=== PATIENT | female | born 1990 | race Caucasian/White ===

== ENCOUNTER 2021-08-18 13:10 | Emergency (ER) | payer OTHER, SELFPAY ==
[2021-08-18 13:19] VITALS: BP 128/76; PULSE 65; RESP 18; TEMP 36.7; O2SAT 100; BMI 27.4
--- NOTE | 2021-08-18 13:59 | ED.GENADULT ---
HPI - General Adult General Time Seen by Provider: 13:59 Date Seen: 08/18/21 Chief complaint: Abdominal Pain Stated complaint: 7W Cramping Time Seen by Provider: 08/18/21 13:24 Source: patient and family History of Present Illness HPI narrative: This 31-year-old female comes in with concern of a couple cramps that occurred as she is at 7 weeks gestation. She states that she had a cramp last evening in her lower abdomen and a more mild 1 this morning. She does not have any vaginal bleeding or spotting. This is her 1st . She is otherwise in good health. Related Data Home Medications Medication Instructions Recorded Confirmed vit no.95-ferrous 1 tab PO DAILY 08/18/21 08/18/21 fumarate 28 mg-folic acid 800 mcg tablet ( Multivitamins) Allergies Allergy/AdvReac Type Severity Reaction Status Date / Time No Known Drug Allergies Allergy Verified 08/18/21 13:17 Review of Systems Status of ROS: Reports: 10 or more systems reviewed and unremarkable except as noted in History and below Narrative: Constitutional: No fevers, no weight gain or loss. Eyes: No discharge. No vision changes. HENT: No congestion, no sore throat, no ear pain. Cardiovascular: No chest pain, no palpitations. Respiratory: No shortness of breath, no wheezes, no cough. Gastrointestinal: No abdominal pain, no vomiting, no diarrhea. Genitourinary: No dysuria, no hematuria. Musculoskeletal: Normal range of motion. Skin: No rashes, no pruritis. Neurological: No dizziness, weakness, sensory change, speech change. Endo/Heme/Allergies: No bruising or bleeding. No polydipsia. Pysch: no suicidality, no anxiety, no insomnia. All other systems reviewed and are negative. Exam Narrative: Exam Narrative: Constitutional: Well-developed, well-nourished, no acute distress. HEENT: Normocephalic, atraumatic. Neck: Normal range of motion. Nontender. Supple. Heart: Regular. No murmurs. Normal rate. Intact distal pulses. Lungs: Clear to auscultation. No chest discomfort. No wheezes, rhonchi, or rales. Abdomen: Normal bowel sounds. Nontender. No rebound tenderness. Genitalia: Deferred. Back: No midline tenderness. Normal range of motion. Extremities: Normal range of motion. No injury. Skin: Intact. No rash. Warm. No erythema or pallor. Neurologic: No altered sensation. No weakness. Alert and oriented. Psychiatric: No suicidality. No anxiety or depression. No insomnia. Nursing notes and vitals signs are reviewed. Const: Vital Signs, click to edit/add: Vital Signs - 24 hr 08/18/21 13:19 Temperature 98.1 F Pulse Rate [Right Pulse Oximeter] 65 Respiratory Rate 18 Blood Pressure [Ri ght Upper Arm] 128/76 Pulse Oximetry 100 Course Vital Signs Vital signs: Initial Vital Signs Temperature 98.1 F 08/18/21 13:19 Temperature Source Temporal Artery Scan 08/18/21 13:19 Pulse Rate 65 08/18/21 13:19 Respiratory Rate 18 08/18/21 13:19 Blood Pressure 128/76 08/18/21 13:19 Blood Pressure Mean 93 08/18/21 13:19 Blood Pressure Position Sitting 08/18/21 13:19 Pulse Oximetry 100 08/18/21 13:19 Oxygen Delivery Method 08/18/21 13:19 Vital Signs Temperature 98.1 F 08/18/21 13:19 Pulse Rate 65 08/18/21 13:19 Respiratory Rate 18 08/18/21 13:19 Blood Pressure 128/76 08/18/21 13:19 Pulse Oximetry 100 08/18/21 13:19 Temperature 98.1 F 08/18/21 13:19 Pulse Rate 65 08/18/21 13:19 Respiratory Rate 18 08/18/21 13:19 Blood Pressure 128/76 08/18/21 13:19 Pulse Oximetry 100 08/18/21 13:19 Medical Decision Making MDM Narrative Medical decision making narrative: This patient is approximately 7 weeks and had 2 individual brief cramping episodes in her lower abdomen that is bird her to come in for evaluation. She does not have any vaginal bleeding. She feels normal otherwise and currently feels normal. She has her 1st ultrasound scheduled next week. I did use bedside ultrasound for for a transabdominal view of her uterus and did see intrauterine . Couple Ng this with no vaginal bleeding and persistent cramping the patient was reassured enough and will continue current plans. I did inform her regarding signs and symptoms that would indicate a need for return and re-evaluation. Discharge Plan Discharge Clinical Impression: First trimester Patient Disposition: Home, Self-Care Condition: Stable Instructions: at 7 to 10 Weeks (ED) Additional Instructions: 1st trimester . Continue current plans. Return if recurrent or worsening symptoms happen. Prescriptions: No Action PNV cmb#95-ferrous fumarate-FA [ Multivitamins] 28 mg iron- 800 mcg tablet 1 tab PO DAILY 0RF Stand Alone Forms: MyHealth Info Instructions Procedures Ultrasound Other exam #1: Anatomical areas examined: Uterus Indications: Cramps in Exam type: focused emergency ultrasound Description/findings: Intrauterine Impression: First trimester intrauterine
== END 2021-08-18 14:28 | disposition home or self-care (01) ==
PROVIDERS: Emergency Provider Emergency Medicine Emergency Medical Services
DX: R10.30 Lower abdominal pain, unspecified (principal); Z3A.01 Less than 8 weeks gestation of pregnancy
CPT/HCPCS: 99283; 99284

== ENCOUNTER 2021-08-29 09:06 | Outpatient (CLI) | payer OTHER, SELFPAY ==
[2021-08-29 13:30] LABS: Hepatitis B Surface Antigen* Negative (Negative)
[2021-08-29 13:39] LABS: HIV 1/2/P24 Combo Screen* Negative (Negative)
[2021-08-29 13:48] LABS: Hepatitis C Virus Antibody* Negative (Negative)
[2021-08-29 17:37] LABS: Chlamydia DNA Amplified* Not Detected (No Detected); GC DNA Amplified* Not Detected (No Detected)
[2021-08-30 20:11] LABS: Rapid Plasma Reagin (RPR) Non Reactive (Non Reactive)
== END 2021-08-29 09:07 | disposition home or self-care (01) ==
PROVIDERS: Visit Provider Advanced Practice Midwife
DX: Z34.91 Encounter for supervision of normal pregnancy, unspecified, first trimester (principal); Z3A.08 8 weeks gestation of pregnancy
CPT/HCPCS: 76817; 84443; 86592; 86703; 86762; 86787; 86803; 86850; 86900; 86901; 87086; 87340; 87491

== ENCOUNTER 2021-10-03 08:02 | Outpatient (CLI) | payer OTHER, SELFPAY ==
--- NOTE | 2021-10-03 08:15 | CRLHL7_ITS ---
For Patients: As a result of the Century Cures Act, medical imaging exams and procedure reports are released immediately into your electronic medical record. You may view this report before your referring provider. If you have questions, please contact your health care provider. CLINICAL HISTORY: First trimester screening. TECHNIQUE: Real time whitmore scale imaging of the fetus was performed using a transabdominal approach. FINDINGS: Sonographic imaging demonstrates a single living intrauterine gestation. The fetus demonstrates a regular cardiac rate measuring 150 beats per minute. The crown rump length measurement of 6.9 cm corresponds to a gestation of 13 weeks 1 day which is concordant with the earlier dating ultrasound. A nuchal translucency measurement of 1.7 mm was obtained for screening purposes. IMPRESSION: Nuchal translucency measurement obtained for first trimester screen. Dictated by Jose Luis Johnson MD @ 10/03/2021 9:19:29 AM (Electronically Signed)
== END 2021-10-03 08:03 | disposition home or self-care (01) ==
LOC: US 08:03
PROVIDERS: Visit Provider Obstetrics & Gynecology
DX: Z34.91 Encounter for supervision of normal pregnancy, unspecified, first trimester (principal); Z13.79 Encounter for other screening for genetic and chromosomal anomalies; Z3A.13 13 weeks gestation of pregnancy
CPT/HCPCS: 36415; 76801; 76813; 84163; 84702

== ENCOUNTER 2021-11-20 12:52 | Outpatient (CLI) | payer OTHER, SELFPAY ==
--- NOTE | 2021-11-20 13:00 | CRLHL7_ITS ---
For Patients: As a result of the Century Cures Act, medical imaging exams and procedure reports are released immediately into your electronic medical record. You may view this report before your referring provider. If you have questions, please contact your health care provider. INDICATION: Evaluate anatomy. COMPARISON: 10/03/2021, 08/29/2021 TECHNIQUE: Real time whitmore scale imaging of the fetus was performed as well as color Doppler analysis of the umbilical vessels. FINDINGS: Sonographic imaging demonstrates a single living intrauterine gestation. Fetus demonstrates a regular cardiac rate of 142 beats per minute. Fetus has a transverse position, head maternal right. The placenta lies anteriorly without evidence of placenta previa. The edge of the placenta is located more than 5 cm from the internal cervical os. Amniotic fluid volume appears normal. Single deepest vertical pocket: 4.3 cm. The cervix is closed and measures 3.5 cm in length. The composite ultrasound gestational age is calculated at 19 weeks 2 days with an estimated sonographic due date of 04/14/2022. The estimated weight is 290 grams which lies at the 17th %. The following biometric measurements were obtained: Biparietal diameter: 4.3 cm/19 weeks 0 days 14th% Head circumference: 16.5 cm/19 weeks 1 day 11th% Abdominal circumference: 14.0 cm/19 weeks 3 days 24th% Femur length: 3.1 cm/19 weeks 4 days 25th% The HC/AC ratio measures: 1.18 range (1.09-1.26) On anatomic survey, there is a normal appearance of the cerebral ventricles, cavum septi pellucidi, cisterna magna and cerebellum. The nose, lips, and facial profile appear normal. The cervical, thoracic and lumbar spine are well visualized and appear normal. There is a normal four-chamber heart view and the left and right ventricular outflow tracts appear normal. The diaphragm and stomach appear normal. The kidneys and bladder also appear normal. There is a normal three-vessel cord and cord insertion site. The four extremities appear normal. IMPRESSION: No intrinsic abnormalities noted on anatomic survey. Sonographic gestational age is 19 weeks 2 days and sonographic due date of 04/14/2022. Sonographic age 5 days behind the clinical age. Estimated weight 17th percentile. Abdominal circumference 24th percentile. Dictated by Jose Luis Johnson MD @ 11/21/2021 9:02:09 AM (Electronically Signed)
== END 2021-11-20 12:53 | disposition home or self-care (01) ==
PROVIDERS: Visit Provider Advanced Practice Midwife
DX: Z36.89 Encounter for other specified antenatal screening (principal); Z34.02 Encounter for supervision of normal first pregnancy, second trimester; Z3A.20 20 weeks gestation of pregnancy
CPT/HCPCS: 76805

== ENCOUNTER 2022-01-15 08:23 | Outpatient (CLI) | payer OTHER, SELFPAY ==
[2022-01-17 06:49] LABS: Rapid Plasma Reagin (RPR) Non Reactive (Non Reactive)
== END 2022-01-15 08:24 | disposition home or self-care (01) ==
LOC: LKVREF 09:19
PROVIDERS: Visit Provider Physician Assistant
DX: Z34.93 Encounter for supervision of normal pregnancy, unspecified, third trimester (principal); Z3A.28 28 weeks gestation of pregnancy
CPT/HCPCS: 86592

== ENCOUNTER 2022-03-13 13:55 | Outpatient (CLI) | payer OTHER, SELFPAY ==
--- NOTE | 2022-03-13 14:00 | CRLHL7_ITS ---
For Patients: As a result of the Cures Act, medical imaging exams and procedure reports are released immediately into your electronic medical record. You may view this report before your referring provider. If you have questions, please contact your health care provider. INDICATION: Size less than dates. COMPARISON: OB ultrasound 11/20/2021. TECHNIQUE: Ultrasound OB pelvis with real time whitmore scale imaging and color Doppler analysis. FINDINGS: Sonographic imaging demonstrates a single living intrauterine gestation. The fetus has a regular cardiac rate of 139 beats per minute. The fetus has a cephalic orientation. The placenta lies anteriorly without evidence of placenta previa. Amniotic fluid volume is within normal limits. Single deepest pocket measures 2.8 cm and the amniotic fluid index measures 8.1 cm. The composite ultrasound gestational age is calculated at 35 weeks 1 day with an estimated sonographic due date of 04/16/2022. The estimated weight is 2391 grams which lies at the 11th percentile. The following biometric measurements were obtained: Biparietal diameter: 9.00 cm (36 weeks 3 days) (68th percentile) Head circumference: 31.97 cm (36 weeks 0 days) (18th percentile) Abdominal circumference: 29.10 cm (33 weeks 1 day) (less than 3rd percentile) Femur length: 6.83 cm (35 weeks 1 day) (20th percentile) The HC/AC ratio measures: 1.10 (range 0.93-1.11) IMPRESSION: 1. Single living intrauterine gestation in cephalic position with heart rate 139 beats per minute. 2. Ultrasound gestational age 35 weeks 1 day with sonographic due date 04/16/2022. The clinical gestational age is 36 weeks 1 day. 3. Estimated weight at the 11th percentile. Dictated by Francisca Walker MD @ 03/13/2022 4:36:02 PM (Electronically Signed) Final Report Patient: MARY MAR Facility:?[facility] Patient ID:?[id number] :?[id number] Study:?US OB Pelvis OB F/U WITH BPP AND UA DOPPLER-03/13/2022 3:24:49 PM Ordering Physician:Justus Bright Final Report: ADDENDUM: Umbilical artery Doppler examination performed. The most accurate measurement is the last measurement on image #23 of 26. There is diastolic flow. Slightly elevated S/D ratio of 3.8, however, the caliber appears somewhat high on the PSV measurement. Overall, there is some suggestion of mildly elevated SD ratio which would correspond with the decreased abdominal circumference. Followup in two weeks may be useful. Jose Luis Johnson M.D. Diagnostic Radiologist [employer] [email or web address] DSM/djw: D& Transcribed: 1:37 p.m. INDICATION: Size less than dates. COMPARISON: OB ultrasound 11/20/2021. TECHNIQUE: Real time whitmore scale imaging of the fetus was performed without non-stress testing. Color Doppler and spectral Doppler analysis of the umbilical artery was performed. FINDINGS: Sonographic imaging demonstrates a single living intrauterine gestation. The fetus demonstrates a regular cardiac rate of 139 beats per minute. The fetus has a cephalic orientation. The umbilical artery S/D ratios range from 3.1-6.2 with an average of 5.1. Reduced end diastolic flow is noted. Amniotic fluid volume appears normal with single deepest pocket measuring 2.8 cm (2/2). The fetus was active (2/2). There was normal flexion and extension of the trunk and extremities (2/2). The fetus demonstrated normal breathing movements (2/2). IMPRESSION: 1. Normal biophysical profile score 8 out of 8. 2. Elevated umbilical artery S/D ratio with reduced end diastolic flow. Dictated by Francisca Walker MD @ 03/13/2022 4:30:56 PM Signed by: Francisca Walker @ 03/13/2022 4:30:56 PM (Electronic Signature) (Electronic Signature)
== END 2022-03-13 13:56 | disposition home or self-care (01) ==
LOC: US 13:56
PROVIDERS: Visit Provider Obstetrics & Gynecology
DX: Z34.93 Encounter for supervision of normal pregnancy, unspecified, third trimester (principal); Z3A.36 36 weeks gestation of pregnancy
CPT/HCPCS: 76816; 76819; 76820; 87081; 87653

== ENCOUNTER 2022-03-16 11:01 | Outpatient (CLI) | payer OTHER, SELFPAY ==
--- NOTE | 2022-03-16 11:00 | CRLHL7_ITS ---
For Patients: As a result of the Century Cures Act, medical imaging exams and procedure reports are released immediately into your electronic medical record. You may view this report before your referring provider. If you have questions, please contact your health care provider. INDICATION: IUGR COMPARISON: 03/13/2022 TECHNIQUE: Real time whitmore scale imaging of the fetus was performed as well as color Doppler and spectral Doppler analysis of the umbilical artery. Without non-stress testing. FINDINGS: Sonographic imaging demonstrates a single living intrauterine gestation. Fetus demonstrates a regular cardiac rate of 154 beats per minute. Fetus has a vertex position. The umbilical artery demonstrates adequate diastolic blood flow. The S/D ratio measures 2.8. The amniotic fluid volume appears normal and there is a single deepest pocket measurement of 5.0 cm. The fetus was active and demonstrated normal breathing movements. There was normal flexion and extension of the trunk and extremities. IMPRESSION: Normal biophysical profile score of 8 out of 8. Normal umbilical artery Doppler. Dictated by Jose Luis Johnson MD @ 03/16/2022 11:55:24 AM (Electronically Signed)
== END 2022-03-16 11:02 | disposition home or self-care (01) ==
LOC: US 11:02
PROVIDERS: Visit Provider Obstetrics & Gynecology
DX: O36.5990 Maternal care for other known or suspected poor fetal growth, unspecified trimester, not applicable or unspecified (principal); Z34.93 Encounter for supervision of normal pregnancy, unspecified, third trimester; Z3A.36 36 weeks gestation of pregnancy
CPT/HCPCS: 76819; 76820

== ENCOUNTER 2022-03-19 10:10 | Outpatient (CLI) | payer OTHER, SELFPAY ==
--- NOTE | 2022-03-19 10:15 | CRLHL7_ITS ---
For Patients: As a result of the Century Cures Act, medical imaging exams and procedure reports are released immediately into your electronic medical record. You may view this report before your referring provider. If you have questions, please contact your health care provider. INDICATION: IUGR COMPARISON: 03/16/2022 TECHNIQUE: Real time whitmore scale imaging of the fetus was performed as well as color Doppler and spectral Doppler analysis of the umbilical artery. Without non-stress testing. FINDINGS: Sonographic imaging demonstrates a single living intrauterine gestation. Fetus demonstrates a regular cardiac rate of 146 beats per minute. Fetus has a vertex position. The umbilical artery demonstrates adequate diastolic blood flow. There is some breathing motion noted. Re measurement of the UA Doppler results in an SD ratio of approximately 2.5. The amniotic fluid volume appears normal and there is a single deepest pocket measurement of 2.4 cm. The fetus was active and demonstrated normal breathing movements. There was normal flexion and extension of the trunk and extremities. IMPRESSION: Normal biophysical profile score of 8 out of 8. Normal UA Doppler/SD ratio with my measurements. Dictated by Jose Luis Johnson MD @ 03/19/2022 10:54:59 AM (Electronically Signed)
== END 2022-03-19 10:11 | disposition home or self-care (01) ==
LOC: US 10:11
PROVIDERS: Visit Provider Obstetrics & Gynecology
DX: O36.5990 Maternal care for other known or suspected poor fetal growth, unspecified trimester, not applicable or unspecified (principal)
CPT/HCPCS: 76819; 76820

== ENCOUNTER 2022-03-22 08:13 | Outpatient (CLI) | payer OTHER, SELFPAY ==
--- NOTE | 2022-03-22 08:15 | CRLHL7_ITS ---
For Patients: As a result of the Century Cures Act, medical imaging exams and procedure reports are released immediately into your electronic medical record. You may view this report before your referring provider. If you have questions, please contact your health care provider. INDICATION: IUGR COMPARISON: 03/19/2022 TECHNIQUE: Real time whitmore scale imaging of the fetus was performed as well as color Doppler and spectral Doppler analysis of the umbilical artery. Without non-stress testing. FINDINGS: Sonographic imaging demonstrates a single living intrauterine gestation. Fetus demonstrates a regular cardiac rate of 159 beats per minute. Fetus has a vertex position. The umbilical artery demonstrates adequate diastolic blood flow. The S/D ratio measures 2.9. The amniotic fluid volume appears normal and there is a single deepest pocket measurement of 3.0 cm. The fetus was active and demonstrated normal breathing movements. There was normal flexion and extension of the trunk and extremities. IMPRESSION: Normal biophysical profile score of 8 out of 8. Dictated by Jose Luis Johnson MD @ 03/22/2022 11:49:04 AM (Electronically Signed)
== END 2022-03-22 08:14 | disposition home or self-care (01) ==
LOC: US 08:14
PROVIDERS: Visit Provider Obstetrics & Gynecology
DX: O36.5990 Maternal care for other known or suspected poor fetal growth, unspecified trimester, not applicable or unspecified (principal)
CPT/HCPCS: 76819; 76820

== ENCOUNTER 2022-03-26 07:10 | Inpatient (IN) | payer OTHER, SELFPAY ==
[2022-03-26] VITALS (34 sets, daily range): BP systolic 96–132; BP diastolic 53–74; PULSE 59–80; RESP 16; TEMP 36.3–36.6; O2SAT 100; BMI 30.2
[2022-03-26 08:38] LABS: SARS PCR* Negative SARS-CoV-2 (Negative)
[2022-03-26] MEDS: miSOPROStoL 25 MCG/0.25 TABLET VAGINAL (09:17)
[2022-03-26] MEDS: OXYTOCIN 30 unit/500 ML in NS 30 UNIT/500 ML BAG IVPB (13:29)
[2022-03-26] MEDS: LACTATED RINGERS 1000 ML 1,000 ML 125 ML IV (13:29)
[2022-03-26] MEDS: AMPICILLIN 2 GM in 0.9 % SODIUM CHLORIDE Mini-bag 100 ML IVPB (14:31)
[2022-03-26 17:20] LABS: Basophils Percent Auto 0.3 % (0.0-3.0); Eosinophils Percent Auto 0.6 % (0.0-7.0); Hemoglobin* 13.5 gm/dL (12.0-16.0); Immature Granulocytes Pct Auto 0.5 %; Lymphocytes Percent Auto 10.1 % (20-44); Mean Corpuscular HGB Conc 34 gm/dL (32-36); Mean Corpuscular Hemoglobin 30 pg (26-34); Mean Corpuscular Volume 89 fL (80-100); Monocytes Percent Auto 8.8 % (0.0-11.0); Neutrophils Percent Auto 79.7 % (42.0-72.0); Platelet Count* 190 K/uL (140-440); RDW Coefficient of Variation % 13.1 % (11.5-15.5); Red Blood Count 4.48 m/uL (4.00-5.20); White Blood Count* 13.83 K/uL (4.50-11.00)
[2022-03-26 17:24] LABS: Slide Review Reflex No
[2022-03-26] MEDS: AMPICILLIN 1 GM in 0.9 % SODIUM CHLORIDE Mini-bag 100 ML IVPB ×2 (18:41→22:44)
[2022-03-26] MEDS: LACTATED RINGERS 1000 ML 1,000 ML IV (21:19)
[2022-03-26] MEDS: ROPIVACAINE 0.2% 100 ml 100 ML 12 MG EPIDURAL (21:34)
--- NOTE | 2022-03-26 21:44 | P.ANBPRC_ITS ---
[facility] Medical History (Updated 03/19/22 @ 11:41 by Heide Luis ([facility]), MEDICAL AND SCIENTIFIC ILLUSTRATOR) Anxiety Bulimia growth restriction antepartum Phobia Surgical History (Updated 03/13/22 @ 16:19 by Kaila Dean MD) No significant past surgical history Family History (Updated 08/30/21 @ 08:59 by MARSHA Hart) Maternal Grandfather Diabetes Mother Healthy adult Father Healthy adult Brother Diabetes Sister Healthy adult Social History (Updated 03/13/22 @ 16:31 by Kaila Dean MD) Narrative: She lives in [place] with her . He has two kids. Previous occupational history: [employer] Highest level of school completed/degree received: Bachelor's degree Physical activity type: walking and yoga How many days of moderate to strenuous exercise, like a brisk walk, did you do in the last 7 days: 3 Smoking Status: Never smoker Do you use any of these nicotine containing products: None Second hand tobacco smoke exposure: No How often do you have a drink containing alcohol: monthly or less How often do you have six or more drinks on one occasion: Never AUDIT-C Alcohol total score: 1 Non-prescribed substance use: denies use Caffeine: Yes (1-2 per week) Little interest or pleasure in doing things: not at all Feeling down, depressed, or hopeless: not at all Meds Home Medications and Allergies Home Medications Medication Instructions Recorded Confirmed Type vit no.95-ferrous 1 tab PO DAILY 08/18/21 03/26/22 History fumarate 28 mg-folic acid 800 mcg tablet ( Multivitamins) omega 3-xct-yxj-fish oil 60 mg-90 1 cap PO QDAY 10/23/21 03/26/22 History mg-500 mg capsule (Fish Oil) hydroxyzine HCl 50 mg tablet 50 mg PO DAILY PRN anxiety 03/26/22 03/26/22 History Allergies Allergy/AdvReac Type Severity Reaction Status Date / Time No Known Drug Allergies Allergy Verified 03/22/22 08:57 Results Labs Labs: Laboratory Results - last 24 hr 03/26/22 03/26/22 03/26/22 08:00 17:14 17:14 WBC 13.83 H RBC 4.48 Hgb 13.5 Hct 40.0 MCV 89 MCH 30 MCHC 34 RDW Coeff of Misty 13.1 Plt Count 190 Neut % (Auto) 79.7 H Lymph % (Auto) 10.1 L Hanson % (Auto) 8.8 Eos % (Auto) 0.6 Baso % (Auto) 0.3 Neut # (Auto) 11.00 H Lymph # (Auto) 1.40 Hanson # (Auto) 1.20 H Eos # (Auto) 0.10 Baso # (Auto) 0.00 SARS-CoV-2 (PCR) Negative SARS-CoV-2 Blood Type O Positive Antibody Screen NEGATIVE Vital Signs Vital Signs: Last Vital Signs Temp 97.6 F 03/26/22 19:14 Pulse 80 03/26/22 21:44 Resp 16 03/26/22 19:14 BP 96/58 L 03/26/22 21:44 Pulse Ox 100 03/26/22 21:29 Weight: 90.129 kg Height: 172.72 cm Anesthesia Procedures Epidural Insertion Patient Location: OB Start Time: 21:00 Stop Time: 22:00 Start Date: 03/26/22 Stop Date: 03/26/22 Reason for Block: procedure for pain Patient Position: sitting Performed By: Waqas Bone Preanesthetic Checklist: IV checked, risks and benefits discussed, surgical consent, monitors and equipment checked, pre-op evaluation, timeout performed and anesthesia consent Prep: chlorhexidine gluconate Monitoring: blood pressure monitoring, continuous pulse oximetry and heart rate Approach: midline Vertebral Space: lumbar (1-5) Epidural Technique: BRUCE saline Needle Type: Tuohy needle Injection Technique: continuous catheter Needle gauge: 17 Needle Length (cm): 10 cm Needle Insertion Depth (cm): 6 Catheter Gauge: 19 Catheter Type: multi-orifice Catheter at skin depth (cm): 12 Test Dose Result: negative and lidocaine 1.5% with epinephrine 1 to 200,000
[2022-03-26] MEDS: PHENYLEPHRINE 100 MCG/ML SYRINGE IVP (22:03)
[2022-03-27] VITALS (28 sets, daily range): BP systolic 94–128; BP diastolic 52–76; PULSE 64–87; RESP 16; TEMP 36.3–36.7; O2SAT 96–98
--- NOTE | 2022-03-27 02:13 | PM.OBPRCVD ---
Procedure Delivery date: 03/27/22 Procedure Done: [employer] Procedure Details: The patient is a 31 year-old G 1 P 0 admitted on March 26 at 38 and 0/7 weeks gestation for induction of labor due to asymmetric severe growth restriction diagnosed 36 1/7 weeks (EFW 10.5%, BPD 68%, HC 18%, AC <3%, FL 20%) with normal Doppler. Cervical exam on admission was 2 cm/60 % effaced/-2 station with membranes intact in vertex presentation. Contractions were every 10 minutes. heart rate demonstrated baseline 150 bpm with moderate variability, + accelerations, - decelerations; a category I tracing. GBS +, received ampicillin for prophylaxis. AROM occurred at 108 on 03/27 with clear fluid. Labor Analgesia: Epidural Pitocin: Yes Labor onset: March 26 at 1330 Complete: March 27 at 0109 Pushing: March 27 at 0124 heart tones during second stage were cat II with late deceleration with contractions after AROM, moderate variability and spontaneous recovery. At 0135 a viable female infant delivered in vertex OA presentation over intact via spontaneous vaginal delivery. was placed on maternal abdomen. Cord was clamped and cut after a 30-60 second delay. Nose and mouth were bulb suctioned. Infant weight: 2710 g : 7 at 1 minute and 8 at 5 minutes. Shoulder dystocia: No. Nuchal cord: No . Placenta delivered spontaneously and complete at 0136 with a 3 vessel cord. Sent to pathology due to growth restriction. Complications: None. Mother and were stable after delivery. Laceration(s): 2nd degree, repaired with 2-0 chromic in a continuous locking manner. Estimated blood loss: 150 mL. Sponge and needles counts are correct. Mother and were stable at the time of this note. Eren is planning on breast feeding. Estimated blood loss (mL): 150
[2022-03-27] MEDS: ACETAMINOPHEN 500 MG TABLET 1000 MG PO (05:07)
[2022-03-27] MEDS: DOCUSATE SODIUM 100 MG CAPSULE PO (09:33)
[2022-03-27] MEDS: IBUPROFEN 600 MG TABLET PO (12:44)
[2022-03-28 01:00] VITALS: BP 107/66; PULSE 69; RESP 16; TEMP 36.6; O2SAT 97
[2022-03-28] MEDS: IBUPROFEN 600 MG TABLET PO ×3 (01:33→21:28)
[2022-03-28 07:24] LABS: Hemoglobin* 12.5 gm/dL (12.0-16.0)
--- NOTE | 2022-03-28 07:43 | P.OBPN_ITS ---
OB - PN:Subj Subjective Date Seen: 03/28/22 Patient comments OB post-: no complaints, pain well controlled, tolerating diet and flatus present [place]urel status: and doing well (montioring blood sugars) feeding status: exclusively Narrative: Day 1:? Vaginal Delivery at 38 and 1/7 weeks.? ?? Complications:? none? The patient feels well.? The pain is well controlled with current medications.? She has no new complaints.? Urinary output is adequate and she is voiding without difficulty.? Has a good appetite, is tolerating a general diet, is passing flatus, and has had a bowel movement.? Has?small amount of rubra lochia.? She is ambulating well.?She had questions about control. She will likely want the mini pill. ? OB - PN: Obj Exam Physical Exam: Vital signs: Temp Pulse Resp BP Pulse Ox O2 Del Method 97.9 F 69 16 107/66 97 03/28/22 01:00 03/28/22 01:00 03/28/22 01:00 03/28/22 01:00 03/28/22 01:00 03/28/22 01:00 Narrative: GENERAL APPEARANCE:? normal affect, alert, no distress? MOOD:? appropriate? CHEST:? clear to auscultation and percussion? HEART:? regular rate and rhythm? ABDOMEN:? soft, non-tender the uterine fundus is?U/2 and is appropriate for the stage of recovery.? PERINEUM:? mild edema of the perineum, there is a?2nd degree laceration that is healing well.? EXTREMITIES:? normal and no edema? OB - PN: Obj Data Labs Labs: Laboratory Results - last 24 hr 03/28/22 07:12 Hgb 12.5 OB - PN: A/P Vaginal Delivery Assessment and Plan (1) care and examination: Status: Acute (2) Lactating mother: Status: Acute Plan 31 year old on day 1.? 1. Routine cares.? 2. Anticipate discharge tomorrow. Would like discharge today but baby is unlikely to discharge today so she will stay if baby stays. Plan day: 1 Plan: routine care
[2022-03-28] MEDS: DOCUSATE SODIUM 100 MG CAPSULE PO (08:34)
[2022-03-28] MEDS: ACETAMINOPHEN 500 MG TABLET 1000 MG PO (08:34)
[2022-03-28 08:40] VITALS: BP 104/69; PULSE 68; RESP 16; TEMP 36.3; O2SAT 97
[2022-03-28 12:33] VITALS: BP 110/72; PULSE 72; RESP 16; TEMP 36.7; O2SAT 97
[2022-03-28 16:35] VITALS: BP 119/75; PULSE 78; RESP 16; TEMP 36.7; O2SAT 96
[2022-03-28 20:15] VITALS: BP 120/73; PULSE 82; RESP 16; TEMP 36.3; O2SAT 96
[2022-03-29 03:39] VITALS: BP 116/74; PULSE 76; RESP 16; TEMP 36.5; O2SAT 96
--- NOTE | 2022-03-29 07:49 | PM.OBDSVD1 ---
DS: Providers Provider Date Seen: 03/29/22 Date of admission: 03/26/22 07:10 Primary care physician: Not a Local Provider Admitting Clinician: Merry Sherman MD Attending Physician on discharge: Maritza Hook CNM Date of Discharge: 03/29/22 DS: Diagnosis Discharge Diagnosis (1) care and examination: Status: Acute (2) Lactating mother: Status: Acute (3) Anxiety: Status: Acute Exam Narrative: Exam Narrative: GENERAL APPEARANCE:? normal affect, alert, no distress? MOOD:? appropriate? CHEST:? clear to auscultation? HEART:? regular rate and rhythm? ABDOMEN:? soft, non-tender the uterine fundus is 1 cm below Umbilicus, Midline and is appropriate for the stage of recovery.? PERINEUM:? mild edema of the perineum, there is a Perineal Laceration, that is healing well.? EXTREMITIES:? normal and no edema? Const: Vital Signs, click to edit/add: Vital Signs - 24 hr 03/28/22 08:40 03/28/22 12:33 03/28/22 16:35 Temperature 97.3 F L 98.1 F 98.0 F Pulse Rate [Pulse Oximeter] 68 72 78 Respiratory Rate 16 16 16 Blood Pressure [Le ft Arm] 104/69 110/72 119/75 Pulse Oximetry 97 97 96 Oxygen Delivery Me thod Room Air Room Air Room Air 03/28/22 20:15 03/29/22 03:39 Temperature 97.4 F L 97.7 F Pulse Rate [Pulse Oximeter] 82 76 Respiratory Rate 16 16 Blood Pressure [Le ft Arm] 120/73 116/74 Pulse Oximetry 96 96 Oxygen Delivery Me thod Room Air Room Air OB - DS: Summary Hospital Course Hospital Course: The patient is a 31 year old G 1 P 1 at 38 1/7 weeks gestation that was admitted to the Center on 03/26/22 for IOL for IUGR. She had an uncomplicated vagial delivery. She delivered a viable female infant. the patient has done well. The patient feels well.? The pain is well controlled with current medications.? She has no new complaints.? Urinary output is adequate and she is voiding without difficulty.? Has a good appetite, is tolerating a general diet, is passing flatus, and has had a bowel movement.? Has small amount of rubra lochia.? She is ambulating well. She is , she has had some issues. She saw yesterday and has a plan. Baby is currently getting IV glucose due to low BG. She will continue to work on today with support. Baby is planning to stay another night for blood sugar concerns. Peripartum Data Infant delivery method: Vaginal Laceration description: Perineal - 2nd Degree complications: none Infant Gender: Female Infant Discharge Plan: Home (Currently inpatient IV glucose, anticipate d/c tomorrow or the next day) Status at Discharge Functional status at discharge: independent ambulation Overall status at discharge: patient is progressing back to baseline Time Spent with Patient Time attestation: Total time spent providing and/or coordinating discharge services: Discharge Plan Discharge Disposition: Home, Self-Care Date of Admission: 03/26/22 07:10 Attending Provider on Discharge: Maritza Hook Primary Care Provider: Provider,Not a Local Condition: Stable Anticipated Discharge Date/Time: 03/29/22 20:00 Discharge Medications: New acetaminophen 500 mg Tablet 1,000 mg PO Q6H PRNQty: 0 0RF docusate sodium 100 mg Capsule 100 mg PO DAILY Qty: 90 0RF ibuprofen 600 mg Tablet 600 mg PO Q6H PRNQty: 60 0RF Continued omega 2-bfb-cud-fish oil [Fish Oil] 60-90-500 mg capsule 1 cap PO QDAY PNV cmb#95-ferrous fumarate-FA [ Multivitamins] 28 mg iron- 800 mcg tablet 1 tab PO DAILY hydroxyzine HCl 50 mg tablet 50 mg PO DAILY PRN (Reason: anxiety) Label Comments: TAKE 1 TABLET BY MOUTH TWICE DAILY NEEDED FOR ANXIETY GREATER THAN 7 OUT OF 10 Discharge Orders: Discharge Order (Routine); Ordered 03/29/22 Ordered By: Maritza Hook Patient Education: OB Over the Counter Medication Information, OB Vaginal/Breast Feeding Additional Instructions: Discharge instructions were reviewed with the patient including signs and symptoms of infection and home going medications Nothing vaginally for 6 weeks: no tampons or intercourse Off Work or School for 6 weeks 2-week visit: discuss infant feeding concerns, review control options and screen for anxiety/depression. 6-week visit for an annual exam. consultation services are available to all mothers and babies for the first year after delivery.? To make an appointment, please call [phone]. Activity Level: Activity as Tolerated Discharge Diet: Regular Follow Up Appointments: [facility] [Provider Group] (2 weeks and 6 weeks ) Forms: MyHealth Info Instructions
[2022-03-29] MEDS: IBUPROFEN 600 MG TABLET PO ×2 (08:07→15:18)
[2022-03-29] MEDS: DOCUSATE SODIUM 100 MG CAPSULE PO (08:07)
[2022-03-29 08:09] VITALS: BP 119/81; PULSE 71; RESP 16; TEMP 36.4; O2SAT 97
[2022-03-29] MEDS: ACETAMINOPHEN 500 MG TABLET 1000 MG PO (15:17)
== END 2022-03-29 16:00 | disposition home or self-care (01) | DRG 807 ==
PROVIDERS: Admitting Provider Obstetrics & Gynecology; Visit Provider Obstetrics & Gynecology
DX: O36.5930 Maternal care for other known or suspected poor fetal growth, third trimester, not applicable or unspecified (principal); Z37.0 Single live birth; F41.9 Anxiety disorder, unspecified; O99.344 Other mental disorders complicating childbirth; O70.1 Second degree perineal laceration during delivery; Z3A.38 38 weeks gestation of pregnancy
CPT/HCPCS: 01967; 36415; 59200; 85018; 85025; 86850; 86900; 86901; 87635; 88307; A9270; J0290; J2370; J2795; J7120; S0020

== ENCOUNTER 2023-09-02 09:48 | Outpatient (CLI) | payer OTHER, SELFPAY | END 2023-09-02 09:49 | disposition home or self-care (01) | PROVIDERS: Visit Provider Physician Assistant | DX: Z01.419 Encounter for gynecological examination (general) (routine) without abnormal findings (principal); R63.5 Abnormal weight gain; F41.9 Anxiety disorder, unspecified; Z13.6 Encounter for screening for cardiovascular disorders; Z13.1 Encounter for screening for diabetes mellitus | CPT/HCPCS: 80061; 82947; 84443 ==

== ENCOUNTER 2024-07-10 11:21 | Outpatient (CLI) | payer OTHER, SELFPAY ==
--- NOTE | 2024-07-10 11:30 | CRLHL7_ITS ---
For Patients: As a result of the Century Cures Act, medical imaging exams and procedure reports are released immediately into your electronic medical record. You may view this report before your referring provider. If you have questions, please contact your health care provider. Addendum: The 2nd lesion in the LEFT breast is located at 2 cm and 1 measures 1.5 cm. Dictated by: Jose Luis Johnson MD @07/20/2024 10:04:40 AM/CRL:jmr DIGITAL DIAGNOSTIC BILATERAL MAMMOGRAM USING TOMOSYNTHESIS AND COMPUTER-AIDED DETECTION LEFT BREAST AND AXILLARY ULTRASOUND CLINICAL HISTORY: LEFT breast pain. COMPARISON: None. TECHNIQUE: Digital BILATERAL mammogram in four projections with computer-aided detection. Tomosynthesis was used in this interpretation. Real-time ultrasound imaging of LEFT breast and axilla with imaging documentation. Scanning was performed by both the technologist and the radiologist. BREAST COMPOSITION: The breasts are heterogeneously dense, which may obscure small masses. FINDINGS: 3D CC/MLO BILATERAL mammogram images submitted along with BILATERAL 2D XCCL images. Architectural distortion is present within the upper outer quadrant LEFT breast corresponding to the area of pain. Unremarkable RIGHT breast mammogram images. Targeted LEFT breast ultrasound performed. In the area of pain, 1 o`clock 10 cm from the nipple, there is a solid heterogeneous hypoechoic solid mass measuring 2.3 x 1.5 x 2.7 cm. Additional solid irregular mass is present at 1 o`clock 11 cm from the nipple measuring 12 millimeters. Enlarged LEFT axillary lymph nodes are present with thickened cortex, measuring up to 1.8 x 1.0 x 1.2 cm. IMPRESSION: Suspicious mass LEFT breast 1 o`clock 10 cm from the nipple measuring 2.7 cm. Additional suspicious mass LEFT breast 1 o`clock 11 cm from the nipple measuring 12 millimeters. Suspicious LEFT axillary lymph nodes measuring up to 1.8 cm. RECOMMENDATIONS: Ultrasound core needle biopsy of both breast lesions and one of the LEFT axillary lymph nodes. A lay language report of this examination will be provided to the patient. BI-RADS Category 4: Suspicious Dictated by Jose Luis Johnson MD @ 07/10/2024 12:23:11 PM jj/Dictated by: Jose Luis Johnson MD @ 07/10/2024 12:23:00 PM Signed by: Jose Luis Johnson @ 07/10/2024 1:04:31 PM (Electronic Signature) (Electronically Signed)
--- NOTE | 2024-07-10 12:00 | CRLHL7_ITS ---
For Patients: As a result of the Cures Act, medical imaging exams and procedure reports are released immediately into your electronic medical record. You may view this report before your referring provider. If you have questions, please contact your health care provider. SEE DIGITAL DIAGNOSTIC BILATERAL MAMMOGRAM PERFORMED SAME DAY CRL:elaina delaney/Dictated by: Jose Luis Johnson MD @ 07/10/2024 12:42:00 PM (Electronically Signed)
== END 2024-07-10 11:22 | disposition home or self-care (01) ==
LOC: MAMMO 11:22
PROVIDERS: Visit Provider Registered Nurse
DX: N64.4 Mastodynia (principal); N63.20 Unspecified lump in the left breast, unspecified quadrant; R92.333 Mammographic heterogeneous density, bilateral breasts
CPT/HCPCS: 76642; 77066; G0279

== ENCOUNTER 2024-07-20 10:59 | Outpatient (CLI) | payer OTHER, SELFPAY ==
--- NOTE | 2024-07-20 11:15 | CRLHL7_ITS ---
For Patients: As a result of the Century Cures Act, medical imaging exams and procedure reports are released immediately into your electronic medical record. You may view this report before your referring provider. If you have questions, please contact your health care provider. ULTRASOUND-GUIDED LEFT AXILLARY LYMPH NODE BIOPSY AND CLIP PLACEMENT CLINICAL HISTORY: Enlarged left axillary lymph node COMPARISON STUDIES: 07/10/2024 TECHNIQUE: Real-time ultrasound with image documentation was used for targeting the left axillary lesion. Core biopsy specimens were obtained using an automated gun with an 18-gauge biopsy needle. CONSENT and TIME OUT: The procedure, risks, and alternatives were explained to the patient and a consent was signed. [place] Protocol was followed including pre-procedure verification that relevant information/documentation was available, reviewed and properly matched to the patient; consent accurate and complete; and equipment and supplies available. Time Out was conducted just prior to starting procedure to verify the four required elements: patient identity, correct side/site marked (if applicable), procedure, relevant images/results properly labeled and displayed (if applicable). PROCEDURE: The patient was positioned supine on the ultrasound table. The breast was prepped with ChloraPrep. 8 cc of 1 percent lidocaine used for local anesthesia. Core samples were obtained. A sterile metal biopsy clip was placed percutaneously to franchesca the lesion position within the left axilla. The specimens were placed in 10% formalin and sent to the pathology department. Pressure was held on the biopsy site until all bleeding subsided. The skin incision was closed with Steri-Strips. An ice pack was positioned over the biopsy site. Post-biopsy instructions were reviewed with the patient, and a written copy was given to her. LATERALITY: Left axilla LESION: Enlarged lymph node with a thickened cortex which measures proximally 1.5 cm. SUSPICION FOR MALIGNANCY: High NUMBER OF SAMPLES: 5 BIOPSY CLIP SHAPE: HydroMARK PROXIMITY OF CLIP TO TARGET: Within the lesion IMPRESSION: Ultrasound-guided left axillary lymph node biopsy. When the pathology report is available, an addendum to this report will be made. ACR not applicable Dictated by Jose Luis Johnson MD @ 07/21/2024 8:42:38 AM (Electronically Signed)
--- NOTE | 2024-07-20 11:15 | CRLHL7_ITS ---
For Patients: As a result of the Century Cures Act, medical imaging exams and procedure reports are released immediately into your electronic medical record. You may view this report before your referring provider. If you have questions, please contact your health care provider. CLINICAL HISTORY: Suspicious nodules. COMPARISON STUDIES: 07/10/2024. TECHNIQUE: Real-time ultrasound with image documentation was used for targeting the breast lesions. A core needle biopsy system was used to obtain core tissue samples with a 16 gauge needle. Post-biopsy CC and ML digital mammograms were obtained to document position of the biopsy marker. CONSENT and TIME OUT: The procedure, risks, and alternatives were explained to the patient and a consent was signed. [place] Protocol was followed including pre-procedure verification that relevant information/documentation was available, reviewed and properly matched to the patient; consent accurate and complete; and equipment and supplies available. Time Out was conducted just prior to starting procedure to verify the four required elements: patient identity, correct side/site marked (if applicable), procedure, relevant images/results properly labeled and displayed (if applicable). PROCEDURE: All biopsies were performed in a similar manner. The patient was positioned supine on the ultrasound table. The breast was prepped with ChloraPrep. 8 cc of 1% lidocaine was injected for local anesthesia. Core samples were obtained. A sterile metal biopsy clip was placed percutaneously to franchesca the lesion position within the breast. The specimens were placed in 10% formalin and sent to the Pathology Department. Pressure was held on the biopsy site until all bleeding subsided. The skin incision was closed with Steri-Strips. An ice pack was positioned over the biopsy site. The patient tolerated the procedure well. Post-biopsy instructions were reviewed with the patient, and a written copy was given to her. SITE A: LATERALITY: LEFT breast LESION: 2.7 x 1.5 x 2.3 cm solid lesion 1 o`clock 10 cm from the nipple SUSPICION: High NUMBER OF SAMPLES: 5 BIOPSY CLIP SHAPE: Twirl PROXIMITY OF CLIP TO TARGET: Within the lesion SITE B: LATERALITY: LEFT breast LESION: Hypoechoic solid nodule anterior depth measures 1.5 x 1.0 x 1.0 cm and located at 2 o`clock 11 cm from the nipple SUSPICION: High NUMBER OF SAMPLES: 5 BIOPSY CLIP SHAPE: HydroMARK PROXIMITY OF CLIP TO TARGET: Within the lesion DISTANCE BETWEEN: Sites A and B: 2.6 cm IMPRESSION: Ultrasound-guided breast biopsy of two sites. When the pathology report is available, an addendum to this report will be made. ACR not applicable Dictated by Jose Luis Johnson MD @ 07/21/2024 11:57:32 AM /sp SP/Dictated by: Jose Luis Johnson MD @ 07/21/2024 11:57:00 AM (Electronically Signed)
--- NOTE | 2024-07-20 12:15 | CRLHL7_ITS ---
For Patients: As a result of the Century Cures Act, medical imaging exams and procedure reports are released immediately into your electronic medical record. You may view this report before your referring provider. If you have questions, please contact your health care provider. PLEASE SEE LEFT ULTRASOUND-GUIDED BIOPSY OF SAME DAY. CRL:sp SP/Dictated by: Jose Luis Johnson MD @ 07/20/2024 12:41:00 PM (Electronically Signed)
== END 2024-07-20 11:00 | disposition home or self-care (01) ==
PROVIDERS: Visit Provider Physician Assistant
DX: N63.20 Unspecified lump in the left breast, unspecified quadrant (principal); C50.912 Malignant neoplasm of unspecified site of left female breast; N64.4 Mastodynia; R92.333 Mammographic heterogeneous density, bilateral breasts
CPT/HCPCS: 19083; 19084; 38505; 76942; 77065; 88305; 88360; 88361; A4648; A4649

== ENCOUNTER 2024-07-27 08:00 | Outpatient (CLI) | payer OTHER, SELFPAY ==
--- NOTE | 2024-07-27 08:15 | CRLHL7_ITS ---
For Patients: As a result of the Century Cures Act, medical imaging exams and procedure reports are released immediately into your electronic medical record. You may view this report before your referring provider. If you have questions, please contact your health care provider. BILATERAL BREAST MRI WITHOUT AND WITH GADOLINIUM CLINICAL HISTORY: New diagnosis left breast cancer with positive left axillary lymph node. INDICATION FOR BREAST MRI: Staging of newly diagnosed breast cancer and screening of contralateral breast. Regional lymph nodes will also be assessed. COMPARISON STUDIES: July 10, 2024, July 20, 2024. CONTRAST: 18 mL Dotarem IV. TECHNIQUE: The patient was positioned prone using a breast coil. Multiple imaging sequences were obtained using 1-1.5 mm thick slices with no gap. The image sequences include T2-weighted STIR in the axial plane, T1-weighted nonfat-saturated gradient echo in the axial plane, pre- and post-contrast T1-weighted FLASH 3D with fat suppression in the axial plane, and T1-weighted FLASH high resolution 3D with fat suppression in the sagittal plane. Image post-processing was performed on a [employer] (formerly [employer]) workstation. Complex 3D rendering including maximum intensity projections (MIPS) and volumetric renderings were obtained to optimize visualization of the extent of pathology and relationship to the nipple, skin, and chest wall. This aids in determining feasibility of breast conservation surgery. Subtraction, multiplanar reconstruction, mean curve determination, and angiogenesis mapping were also performed. The study was technically adequate. FINDINGS: Amount of Fibroglandular Tissue: Heterogeneous. Breast Background Enhancement: Moderate. RIGHT Breast: No suspicious mass or non-mass enhancement. LEFT Breast: Left lateral upper outer quadrant solid irregular enhancing mass 3.5 x 2 x 3.4 cm is the newly diagnosed breast cancer. Marker clip placed at biopsy seen within. Just lateral to this a 2nd enhancing mass identified which measures 1.7 cm in diameter. This contains a marker clip and correlates with the 2nd site of breast cancer . Distance between the masses is 2 cm. A group of other small round enhancing masses seen anterior to the primary mass measuring 3 cm in size. These are likely satellite lesions. Lymph Nodes: Multiple, at least 4 abnormal left axillary lymph nodes are identified. Signal void from marker clip is identified in the largest node measuring 1.7 cm in size. Low right axilla indeterminate lymph node. Size 1 cm in size. No other abnormal lymph nodes. IMPRESSIONS AND RECOMMENDATIONS: 1. New left breast cancer identified is a 3.5 x 2 x 3.4 cm irregular enhancing mass containing a marker clip left upper outer breast adjacent with 2nd site measures 1.7 cm in diameter. Numerous small satellite nodules extending anterior to the mass measure 3 cm in size. 2. At least 4 abnormal left axillary lymph nodes 3. Indeterminate low right axillary lymph node. Consider ultrasound with possible biopsy. 4. If treatment would change consider ultrasound with possible biopsy left breast to look for additional anterior satellite lesions. MRI guided biopsy could be performed if ultrasound is negative. BI-RADS Category 4: Suspicious Dictated by Rachna Narayan MD @ 07/28/2024 11:27:02 AM/josesito MARTINEZ/Dictated by: Rachna Narayan MD @ 07/28/2024 2:06:00 PM (Electronically Signed)
== END 2024-07-27 08:01 | disposition home or self-care (01) ==
LOC: MRI 08:01
PROVIDERS: Visit Provider Surgery
DX: C50.411 Malignant neoplasm of upper-outer quadrant of right female breast (principal); C50.412 Malignant neoplasm of upper-outer quadrant of left female breast; C77.3 Secondary and unspecified malignant neoplasm of axilla and upper limb lymph nodes
CPT/HCPCS: 77049; C8908; C8937; A9575

== ENCOUNTER 2024-08-03 08:59 | Outpatient (CLI) | payer OTHER, SELFPAY ==
--- NOTE | 2024-08-03 | CRLHL7_ITS ---
For Patients: As a result of the Century Cures Act, medical imaging exams and procedure reports are released immediately into your electronic medical record. You may view this report before your referring provider. If you have questions, please contact your health care provider. PLEASE SEE RIGHT BREAST ULTRASOUND-GUIDED BIOPSY OF SAME DAY. CRL:sp SP/Dictated by: Jose Luis Johnson MD @ 08/03/2024 11:02:00 AM (Electronically Signed)
--- OUTSIDE RECORDS SUMMARY | 2024-08-03 09:07 | XMS_ITS | Clinical Summary ---
Author Organization [facility] Address [address] [place] [address] Care Team Providers Care Architecture Drafter Name Role Phone No Primary/Referring, Phy Primary Care Provider Unavailable Source Comments You are receiving this document as you are listed as the primary care provider,follow-up provider, or the patient has been referred to you for consultation.This is in compliance with the Medicare and[facility] EHR Incentive Program,which states Providers who transition their patient to another setting of careor provider of care or refers their patient to another provider of care shouldprovide summary care record for each transition of care or referral. [facility] Allergies No known active allergies Medications Multiple Vitamin (MULTIVITAMINS OR) Reported on 06/27/2016 Active Active Problems Problem Noted Date Diagnosed Date Encounter for contraceptive management 6 Screening for malignant neoplasm of cervix 04/25 Overview (10/03/2016): PER VISIT NOTE DATED April: Hx of abnormal paps: Yes; Age: 23 2017 NILM Plan: hx ; Pap test history Immunizations Immunization Administration Dates Next Due 4vHPV (Gardasil) 11/08/2011,06/21/2011, 2 HepB Ped/Adol (0-18 yrs) 05/23/2000,01/01/2000,1 Tdap 05/07/2011 Family History Medical History Relation Name Comments Diabetes Brother 4 Type 1 Diabetes, Type II Maternal Grandfather Relation Name Status Comments Father Alive Mother Alive Brother 1 Alive Brother 2 Alive Brother 3 Alive Brother 4 Maternal Grandfather Sister Alive Social History Tobacco Use Types Packs/Day Years Used Date Smoking Tobacco: Never Smokeless Tobacco: Never Alcohol Use Standard Drinks/Week Comments Yes 1 (1 standard drink = 0.6 oz pur e alcohol) Comments No Sex and Gender Information Value Date Recorded Sex Assigned at Not on file Legal Sex Female 4:14 AM CDT Gender Identity Not on file Sexual Orientation Not on file Occupation Industry Job Start Date Job End Date [employer] Not on file Not on file Not on file Last Filed Vital Signs Vital Sign Reading Time Taken Comments Blood Pressure 110/70 06/27/2016 9:09 AM CDT Pulse 68 06/27/2016 9:09 AM CDT Temperature 37.3 C (99.2 F) 01/18/2016 11:50 AM HE[facility] S[facility]TER Respiratory Rate 16 01/18/2016 11:5 0 AM [facility] Oxygen Saturation 100% 01/18/2016 11: 50 AM [facility] Inhaled Oxygen Concentration - - Weight 76.1 kg (167 lb 11.2 oz) 016 11:00 AM [facility] Height 172.1 cm (5' 7.75) 04/20/2015 1 1:00 AM [facility] Body Mass Index 25.69 04/20/2015 11:00 AM HE[facility] S[facility]TER Plan of Treatment Health Maintenance Due Date Last Done Comments Hep C Screening (Preventive Services) 1990 Adult Preventive Visit 04/19/2017 04/20/2015 Cervical Cancer Screening 04/19/2018 04/20/2015 DTaP/Tdap/Td Vaccine (2 - Tdap) 05/06/2021 05/07/2011 COVID-19 Vaccine (2023-2 5 season) 2023 Influenza Vaccine (Season Ended) 2024 Zoster/Shingles Vaccine (1 o f 2) 2038 HepB Vaccine Completed 05/23/2000, 01/01/2000, 11/29/1999 HPV Vaccine Completed 11/08/2011, 06/21/2011, 05/07/2011 HIV Screening (Preventive Services) Completed 04/13/2016 HepA Vaccine Aged Out No longer eligi ble based on patient's age to complete this topic Hib Vaccine Aged Out No longer eligi ble based on patient's age to complete this topic IPV (Polio) Vaccine Aged Out No longe r eligible based on patient's age to complete this topic MCV4 Vaccine Aged Out No longer eligi ble based on patient's age to complete this topic Meningococcal B Vaccine Aged Out No l onger eligible based on patient's age to complete this topic Pneumococcal Vaccine Aged Out No long er eligible based on patient's age to complete this topic Procedures Procedure Name Priority Date/Time Associated Diagnosis Comments HIV 1/2 AG/AB 4TH GEN Routine 04/13/2016 8:20 AM [facility] Screening for HIV (human immunodeficiency virus) PAP TEST, ROUTINE Routine 04/20/2015 10: 52 AM [facility] Screening for cervical cancer from Last 3 Months or Most Recently Relevant to Health Maintenance Results * HIV 1/2 Ag/Ab 4th Generation (04/13/2016 8:20 AM HE[facility]TER) HIV 1/2 AG/AB 4thGEN Negative (Non Reactive) NEGNR [facility] Comment:HIV-1 p24 Ag and HIV -1/HIV-2 Ab not detected. 04/13/2016 8:20 AM [facility] S[facility]TER 04/13/2016 7:07 PM [facility] Narrative [facility] - 04/13/2016 8:25 PM [facility] Performed at [facility], [address] [place] [address] us Korin Delgado CONFERENCE DIRECTOR, CHILDREN'S PROGRAM COORDINATOR LAB_1 Final R esult [facility] [phone] * PAP TEST, ROUTINE (04/20/2015 10:52 AM HEEL S[facility]TER) Cytology, Pap (NOTE) Electrophysiology Scientist Cytology Report Patient Name: MARY LOCKHART Taken: 04/20/2015 Received: 04/21/2015 Reported: 04/25/2015 Physician(s): YANNI RODRIGUEZ Source of Specimen Pap Test, Routine Cervical/Endocervi ann: Specimen Adequacy Satisfactory for evaluation. Endocervical component present. Final Cytologic Interpretation/Res ult NEGATIVE FOR INTRAEPITHELIAL LESION OR MALIGNANCY (NILM) Other Cytologic Findings Inflammation *Electronically Signed Out By Geneva Ardon CT (ASCP)* Geneva Ardon CT (ASCP) Pap Smear History Date of Last Menstrual Period: No LMP recorded Microscopic Description Microscopic examination is performed. [facility] Department of Pathology [address] [place] [id number] [facility] 04/20/2015 10:5 2 AM HEEL S[facility]TER 04/21/2015 10:28 AM HE[facility] S[facility]TER Yanni Rodriguez PA-C LAB_1 Final R esult [facility] [phone] from Last 3 Months or Most Recently Relevant to Health Maintenance Insurance SELF INSURED Care Teams Architecture Drafter Relationship Specialty Start Date End Date No Primary/Referring, Phy PCP - General 11/22/14
--- OUTSIDE RECORDS SUMMARY | 2024-08-03 09:07 | XMS_ITS | Clinical Summary ---
Author Organization [facility] Address [address] [place] [id number] Care Team Providers Care Senior Information Security Analyst Name Role Phone Fabby Stein MD Primary Care Provider [phone] Allergies No known active allergies Medications norgestim-eth estrad triphasic (ORTHO TRI-CYCLEN, 28,) 0.18/0.215/0.25 MG-35 MCG TABS tabletIndication s:Contraception Take 1 tablet by mouth daily. 3 Package 0 03/25/2012 Active Active Problems Problem Noted Date Diagnosed Date Cervical high risk HPV (human papillomavirus) te st positive 07/17/2014 Overview (02/08/2022): 04/12/11 NIL pap 04/15/12 NIL pap 07/27/14 NIL pap, + HR HPV (age 24 yrs) 04/20/15 NIL pap 01/23/21 NIL pap, Neg HPV. Plan: cotest in 1 year 01/08/22 Reminder letter 02/08/22 Reminder call - spoke with patient, she has transferred care to a different care system Mild major depression 04/12/2011 Overview (06/21/2011): 04/12/2011 PHQ-9 10/07. Celexa 20 and stopping Prozac 60. 04/2011: PHQ-9 . Celexa 40, recheck 1 month. 06/2011: PHQ-9 06/07. Celexa 40, counseling. Bulimia nervosa 09/04/2010 Overview (05/07/2011): 08/2010: No vomiting in 2 weeks. Seeing Poly Mon for counseling. Prozac 20. Nutrition referral. 09/2010: No vomiting in over 5 weeks. Seeing Poly. Prozac 40-- increased to prozac 60. 04/2011: No purging x 3 weeks. Stopped seeing Poly not helpful Inpatient tx too expensive. Recommend set up with Johana Mehta. Recheck 1 month Anxiety 09/04/2010 Overview (06/21/2011): 08/2010: MARIAH 7 Prozac 20 09/2010: MARIAH 2 on Prozac 40. INcrease to Prozac 60. 04/2011: MARIAH-7 is 12/01. Increase to Celexa 40. Recheck 1 month. 06/2011: MARIAH-7 is 05/01. Continue Celexa 40. Set up counseling with Johana Pino Resolved Problems Problem Noted Date Diagnosed Date Resolved Date Eating disorder 09/04/2010 09/04/2010 Immunizations Immunization Administration Dates Next Due HPV 11/08/2011,06/21/2011,05/07/2011 TDAP Vaccine (Adacel) 05/07/2011 Family History Medical History Relation Comments Diabetes Brother 2 Depression Brother 3 2 brothers with this Diabetes Maternal Grandfather Lipids Mother Relation Status Comments Brother 1 Alive 3 Brother 2 Brother 3 Father Alive Maternal Grandfather Mother Alive Sister Alive 1 Social History Tobacco Use Types Packs/Day Years Used Date Smoking Tobacco: Never Smokeless Tobacco: Never Alcohol Use Standard Drinks/Week Comments Yes 0 (1 standard drink = 0.6 oz pur e alcohol) social-couple Social Connection and Isolation Panel [NHANES] A nswer Date Recorded In a typical week, how many times do you talk on the phone with family, friends, or neighbors? Twice a week 01/16/2021 How often do you get together with friends or re latives? Once a week 01/16/2021 How often do you attend buddhist or gnosticist serv ices? Never 01/16/2021 Do you belong to any clubs o r organizations such as buddhist groups, unions, fraternal or athletic groups, or school groups? No 01/16/2021 Attends Club or Organization Meetings Not on melina e 01/16/2021 Are you , , di vorced, , never , or living with a partner? 01/16/2021 AUDIT-C Answer Date Recorded Q1: How often do you have a drink containing alc ohol? Monthly or less 01/16/2021 Q2: How many drinks containi ng alcohol do you have on a typical day when you are drinking? 3 or 4 01/16/2021 Q3: How often do you have si x or more drinks on one occasion? Never 01/16/2021 Overall Financial Resource Strain (CARDIA) Answe r Date Recorded How hard is it for you to pa y for the very basics like food, housing, medical care, and heating? Not hard at all 01/16/2021 PHQ-2 Answer Date Recorded PHQ-2 Score 1 01/23/2021 [facility] - Occupational Stress Questionnaire Answer Date Recorded Do you feel stress - tense, restless, nervous, or anxious, or unable to sleep at night because your mind is troubled all the time - these days? Only a little 01/16/2021 Exercise Vital Sign Answer Date Recorde d On average, how many days pe r week do you engage in moderate to strenuous exercise (like a brisk walk)? 0 days 01/16/2021 On average, how many minutes do you engage in exercise at this level? 0 min 01/16/2021 Hunger Vital Sign Answer Date Recorded Within the past 12 months, y ou worried that your food would run out before you got the money to buy more. Never true 01/17/20 21 Within the past 12 months, t he food you bought just didn't last and you didn't have money to get more. Never true 01/16/2021 PRAPARE - Transportation Answer Date Re corded In the past 12 months, has l ack of transportation kept you from medical appointments or from getting medications? No 07/2020 In the past 12 months, has l ack of transportation kept you from meetings, work, or from getting things needed for daily living? No 01/16/2021 Housing Stability Vital Sign Answer Jagjit e Recorded In the last 12 months, was t here a time when you were not able to pay the mortgage or rent on time? No 01/16/2021 In the last 12 months, how many places have you lived? 2 01/16/2021 In the last 12 months, was t here a time when you did not have a steady place to sleep or slept in a care home (including now)? 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 Legal Sex Female 5:13 AM [employer] INSTALL[employer] MECHANIC Gender Identity Female 01/16/2021 2:57 PM [employer]STALL[employer] MECHANIC Sexual Orientation Straight 01/16/2021 2: 57 PM [employer] INSTALLATIONS MECHANIC Occupation Industry Job Start Date Job End Date Not on file Not on file Not on file Not on file Last Filed Vital Signs Vital Sign Reading Time Taken Comments Blood Pressure 120/80 02/14/2021 3:31 PM [employer] MECHANIC Pulse 83 02/14/2021 3:31 PM [employer] MECHANIC Temperature 37 C (98.6 F) 02/14/2021 3:31 PM [employer] MECHANIC Respiratory Rate 16 02/14/2021 3:31 PM [employer]STALL[employer] MECHANIC Oxygen Saturation 100% 02/14/2021 3:31 PM [employer]ST[employer] MECHANIC Inhaled Oxygen Concentration - - Weight 85.5 kg (188 lb 9.6 oz) 02/14/2021 3:31 P M [employer] MECHANIC Height 170.2 cm (5' 7) 01/23/2021 10:25 AM [employer]ST[employer] MECHANIC Body Mass Index 29.54 01/23/2021 10:25 AM [employer]STALL[employer] MECHANIC Plan of Treatment Health Maintenance Due Date Last Done Comments ANNUAL REVIEW OF HM ORDERS 1988 DEPRESSION ACTION PLAN 1988 HIV SCREENING 06/26/2003 HEPATITIS C SCREENING 2006 HEPATITIS B VACCINE (1 of 3 - 19+ 3-dose series) 06/26/2007 DIABETES SCREENING 05/06/2014 05/07/2011 DTAP/TDAP/TD VACCINE (2 - Td or Tdap) 05/06/2021 05/07/2011 PHQ-9 07/24/2021 01/23/2021, 05, 05/07/2011, Additional history exists HPV FOLLOW-UP 01/23/2022 01/23/2021 PAP FOLLOW-UP 01/23/2022 01/23/2021, 04/12/2011 YEARLY PREVENTIVE VISIT 01/23/2022 01/23/2021, 04/11 COVID-19 VACCINE ( season) 2023 01/30/2021, 06/21/2020, 05/23/2020 INFLUENZA VACCINE (Season Ended) 2024 ADVANCE CARE PLANNING 01/23/2026 01/23/2021 ZOSTER VACCINE (1 of 2) 2038 HPV VACCINE Completed 11/08/2011, 10/13, 06/21/2011, Additional history exists PAP Discontinued 01/23/2021, 04/12/2011 MENINGITIS VACCINE Aged Out No longer eligible based on patient's age to complete this topic PNEUMOCOCCAL VACCINE: PEDIATRICS (0 to 5 YEARS) AND AT-RISK PATIENTS (6 to 49 YEARS) Aged Out No longer eligible based on patient's age to complete this topic Procedures Procedure Name Priority Date/Time Associated Diagnosis Comments HPV HIGH RISK TYPES DNA CERVICAL Routine 01/23/2021 10:51 AM [employer]STALLATIONS MECHANIC Screening for condition GYNECOLOGIC CYTOLOGY Routine 01/23/2021 10:51 AM [employer] INSTALLATIONS MECHANIC Screening for condition BASIC METABOLIC PANEL Routine 05/07/2011 10:29 AM CDT Bulimia nervosa (H) from Last 3 Months or Most Recently Relevant to Health Maintenance Results * Pap Screen with HPV - recommended age 30 - 65 years (01/23/2021 10:51 AM DRY WALL INSTALLATIONS MECHANIC) Interpretation Negative for Intraepithelial Lesion or Malignancy (NILM) 01/25/2021 3:03 PM DRY WALL INSTALLATIONS MECHANIC [facility] at [address]3 DRY WALL INSTALLATIONS MECHANIC Comment Papanicolaou Test Limitations: Cervical cytology is a screening test with limited sensitivity, and regular screening is critical for cancer prevention. Pap tests are primarily effective for the diagnosis/prevent ion of squamous cell carcinoma, not adenocarcinoma or other cancers. 01/25/2021 3:03 PM DRY WALL INSTALLATIONS MECHANIC [facility] Specimen Adequacy Satisfactory for evaluation, endocervical/blum sformation zone component present 01/25/2021 3:03 PM DRY WALL INSTALLATIONS MECHANIC [facility] Clinical Information none 01/25/2021 3:03 PM DRY WALL INSTALLATIONS MECHANIC [facility] Reflex Testing Yes regardless of result 01/25/2021 3:03 PM DRY WALL INSTALLATIONS MECHANIC [facility] Previous Abnormal? No 01/25/2021 3:03 PM DRY WALL INSTALLATIONS MECHANIC [facility] Performing Labs The technical component of this testing was completed at [facility] 01/25/2021 3:03 PM DRY WALL INSTALLATIONS MECHANIC [facility] Brushing CERVIX UTERI STRUCTURE / Unknown Non-blood Collection / Unknown 01/23/2021 10:51 AM DRY WALL INSTALLATIONS MECHANIC 01/23/2021 11:24 AM DRY WALL INSTALLATIONS MECHANIC us Fabby CAMARILLO - DONAVON Final Result [facility] [address] [place] [address], [facility] [phone] * HPV High Risk Types DNA Cervical (01/23/2021 10:51 AM DRY WALL INSTALLATIONS MECHANIC) Other HR HPV Negative Negative 01/27/2021 7:35 AM DRY WALL INSTALLATIONS MECHANIC [facility] HPV16 DNA Negative Negative 01/27/2021 7:35 AM DRY WALL INSTALLATIONS MECHANIC [facility] HPV18 DNA Negative Negative 01/27/2021 7:35 AM DRY WALL INSTALLATIONS MECHANIC [facility] FINAL DIAGNOSIS This patient's sample is negative for HPV DNA. This test was developed and its performance characteristics determined by the [facility]. It has not been cleared or approved by the FDA. The laboratory is regulated under CLIA as qualified to perform high-complexity testing. This test is used for clinical purposes. It should not be regarded as investigational or for research. METHODOLOGY: The Annia Jo 4800 system uses automated extraction, simultaneous amplification of HPV (L1 region) and beta-globin, followed by real time detection of fluorescent labeled HPV and beta globin using specific oligonucleotide probes. The test specifically identified types HPV 16 DNA and HPV 18 DNA while concurrently detecting the rest of the high risk types (31, 33, 35, 39, 45, 51, 52, 56, 58, 59, 66 or 68). COMMENTS: This test is not intended for use as a screening device for woman under age 30 with normal cervical cytology. Results should be correlated with cytologic and histologic findings. Close clinical followup is recommended. 01/27/2021 7:35 AM DRY WALL INSTALLATIONS MECHANIC [facility] Brushing CERVIX UTERI STRUCTURE / Unknown Non-blood Collection / Unknown 01/23/2021 10:51 AM DRY WALL INSTALLATIONS MECHANIC 01/26/2021 9:49 AM DRY WALL INSTALLATIONS MECHANIC us Fabby Stein MD LAB - BLOOD ORDERABLES Final Res ult [facility] [address] [facility] [place] [address], [facility] [phone] * Basic metabolic panel (05/07/2011 10:29 AM CDT) Sodium 141 133 - 144 mmol/L [facility] Potassium 4.3 3.4 - 5.3 mmol/L [facility] Chloride 106 94 - 109 mmol/L [facility] Carbon Dioxide 26 20 - 32 mmol/L [facility] Anion Gap 9 6 - 17 mmol/L [facility] Glucose 82 60 - 99 mg/dL [facility] Urea Nitrogen 13 5 - 24 mg/dL [facility] Creatinine 0.73 0.52 - 1.04 mg/dL [facility] GFR Estimate >90 >60 mL/min/1.7 m2 [facility] GFR Estimate If Black >90 >60 mL/min/1.7 m2 [facility] Calcium 9.5 8.5 - 10.4 mg/dL [facility] Blood specimen (specimen) 05/07/2011 10:29 AM CDT 05/08/2011 4:07 PM CDT us Clara Rivera PA-C LAB - BLOOD ORDERABLES Fin al Result Performing Organization Address City/[facility]/ZIP Co de Phone Number [facility] CANDICE Mckinley [id number] from Last 3 Months or Most Recently Relevant to Health Maintenance Insurance [place] [employer] Care Teams Senior Information Security Analyst Relationship Specialty [place] [id number] [place] [address] PCP - General Family Medicine 01/23/21
--- OUTSIDE RECORDS SUMMARY | 2024-08-03 09:08 | XMS_ITS | Clinical Summary ---
Author Organization [facility] Address [address] [place] [address] Care Team Providers Care Mental Health Aide Name Role Phone Danae Hunter Primary Care Provider Medications multivitamin (MVI) tablet Take 1 tablet by mouth once daily. 0 5 Active norgestimate-ethin yl estradiol (ORTHO TRI-CYCLEN LO, 28,) 0.18/0.215/0.25-25 mg-mcg tabletIndications: Other general counseling and advice for contraceptive management Take 1 tablet by mouth once daily. 84 tablet 2 5 Active Desogestrel-Ethiny l Estradiol (CAZIANT, 28,) 0.1/.125/.15-25 mg-mcg tabletIndications: Encounter for surveillance of contraceptive pills Take 1 tablet by mouth once daily. 3 Package 1 5 Active Encounters Date Type Department Care Team Description 08/02/2024 Travel 07/31/2024 Telephone [facility] [place] [place] [address] [place] [address] Claudine Thrasher Cancer Genetics 07/30/2024 Orders Only [facility] Scanner 1 scan: (1-Ord) INCOMING RECORDS-MRI, [facility], 07/30/2024 07/29/2024 Transcribe Orders [facility] [place] [address] [place] [address] Veena Mccarty MD 07/29/2024 Transcribe Orders [facility] [phone] Veena Mccarty MD 07/21/2024 Lab Requisition [facility] [phone] Ariadne Smyth, ASIF 07/21/2024 Lab Requisition [facility] [phone] Ariadne Smyth, ASIF 07/21/2024 Lab Requisition [facility] [phone] Ariadne Smyth, ASIF 07/10/2024 Orders Only [facility] Scanner 1 scan: (1-Ord) INCOMING RECORDS-MAMMOGRAMS, [facility], 07/10/2024 from Last 3 Months Immunizations Immunization Administration Dates Next Due Human Papilloma Virus Vaccine 11/08/2011, 012,05/07/2011 Tdap 05/07/2011 Family History Medical History Relation Name Comments Diabetes Brother Good Health Father Diabetes Maternal Grandfather Good Health Mother Unknown Paternal Grandfather Unknown Paternal Grandmother Relation Name Status Comments Brother Alive Father Alive Maternal Grandfather Maternal Grandmother Alive Mother Alive Paternal Grandfather Paternal Grandmother Social History Tobacco Use Types Packs/Day Years Used Date Smoking Tobacco: Never Smokeless Tobacco: Never Alcohol Use Standard Drinks/Week Comments Yes 0 (1 standard drink = 0.6 oz pur e alcohol) Comments No Sex and Gender Information Value Date Recorded Sex Assigned at Female 08/02/2024 9:47 AM CDT 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 Gender Identity Female 08/02/2024 9:47 AM CDT Sexual Orientation Straight 08/02/2024 9: 47 AM CDT Obstetrics History Last Filed Vital Signs Vital Sign Reading Time Taken Comments Blood Pressure 104/62 07/27/2014 12:22 PM CDT Pulse 76 07/27/2014 12:22 PM CDT Temperature 37.1 C (98.8 F) 04/15/2012 12:21 PM 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 Respiratory Rate 20 04/15/2012 12:21 PM 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 Oxygen Saturation - - Inhaled Oxygen Concentration - - Weight 76.7 kg (169 lb) 07/27/2014 12:22 PM CDT Height 172.1 cm (5' 7.75) 07/27/2014 12:22 PM C DT Body Mass Index 25.89 07/27/2014 12:22 PM CDT Plan of Treatment Upcoming Encounters Date Type Department Care Team (Late st Contact Info) Description 08/04/2024 8:30 AM CDT Appointment [facility] [address] [place] [address] 08/07/2024 1:30 PM CDT Telemedicine [facility] [place] [address] [place] [address] Itzel Gutiérrez, MS, [facility] [address] [facility] [address] [place] [address] Health Maintenance Due Date Last Done Comments COVID-19 vaccine series (#1) 1993 Depression screening for age 12+ 2000 HIV for age 15-65 06/26/2003 BMI (ht and wt on same day) for age 18+ 2006 Hepatitis C screening for age 18-79 2006 Hepatitis B series for 19+ ( 1 of 3 - 19+ 3-dose series) 06/26/2007 Pneumococcal series for age 6-49 (1 of 2 - PCV) 06/26/2007 Pap test for age 21-65 07/27/2017 5, 07/27/2014, 04/15/2012 Tetanus booster 05/06/2021 05/07/2011 Influenza Vaccine (Season Ended) 2024 Tdap Completed 05/07/2011 Procedures Procedure Name Priority Date/Time Associated Diagnosis Comments SCAN CORRESP-IMAGING 07/30/2024 12:00 AM CDT LAB TRACKING EVENT Routine 07/20/2024 11 :50 AM CDT LAB TRACKING EVENT Routine 07/20/2024 11 :45 AM CDT LAB TRACKING EVENT Routine 07/20/2024 11 :40 AM CDT PATH BREAST CORE BIOPSY Routine 07/20/2024 11:40 AM CDT SCAN-MAMMOGRAPHY REPORT 07/10/2024 12:00 AM CDT DIRECTOR LONG TERM CARE THIN PREP PAP SCREEN IMAGED Routine 07/27/2014 12:37 PM CDT Screening for malignant neoplasm of the cervix from Last 3 Months or Most Recently Relevant to Health Maintenance Results * SCAN CORRESP-IMAGING (07/30/2024 12:00 AM CDT) Anatomical Region Laterality Modality Other us Scanner OTHER Final Result * LAB TRACKING EVENT (07/20/2024 11:50 AM CDT) Only the most recent of3 resultswithin the time period is included. Other (Other) Client Collect / Unknown 07/20/2024 11:50 AM CDT 07/21/2024 8:22 AM CDT us Ariadne Smyth NP LAB BILL ONLY Final Res ult [facility] [address] [place] [address], [place] * PATH BREAST CORE BIOPSY (07/20/2024 11:40 AM CDT) Case Report Pathology Report Case: [id number] Authorizing Provider: Ariadne Smyth NP Collected: 07/20/2024 1140 Ordering Location: [facility] Received: 07/21/2024 0809 Pathologist: Lili Beckford MD Specimens: A) - Left Breast Core Ultrasound Biopsy, 1 o'clock, 10 cm from nipple B) - Left Breast Core Ultrasound Biopsy, 2 o'clock, 11 cm from nipple C) - Left Axillary Lymph Node 11:07 AM CDT [facility] Amendment 07/24/2024 - Amendmen t issued to incorporate ancillary studies. 11:07 AM CDT [facility] Final Diagnosis A) LEFT BREAST, 1:00, 10 CM FROM NIPPLE, ULTRASOUND-GUIDED CORE BIOPSY: 1. Invasive ductal carcinoma a. [place] grade: III of III; Jenaro score: 9 of 9 b. Angio-lymphatic invasion: No definite c. Associated DCIS: Present d. Subtype: Solid and Comedo e. Grade of DCIS: 3 of 3 2. Breast Ancillary Testing: a. Hormone Receptors: Estrogen receptor: Positive (84%, moderate staining) Progesterone receptor: Positive (16%, moderate staining) b. HER2 by IHC: Negative (0-ultralow by manual morphometry) c. Ki-67: 36% by image analysis B) LEFT BREAST, 2:00, 11 CM FROM NIPPLE, ULTRASOUND-GUIDED CORE BIOPSY: 1. Invasive ductal carcinoma a. Jenaro grade: II of III; [place] score: 7 of 9 b. Angio-lymphatic invasion: Suspicious c. Associated DCIS: Absent 2. Breast Ancillary Testing: a. Hormone Receptors: Estrogen receptor: Positive (65%, moderate staining) Progesterone receptor: Positive (2%, moderate staining) b. HER2 by IHC: Negative (0-ultralow by manual morphometry) c. Ki-67: 29% by image analysis C) LEFT AXILLA, LYMPH NODE, ULTRASOUND-GUIDED CORE BIOPSY: 1. 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 Metastatic carcinoma measures at least 5 mm b. Negative for extracapsular extension in this biopsy 11:07 AM CDT [facility] Amendment electronically signed by Best Hinds MD on 07/24/2024 at 1107 CDT at 1135 CDT Comment A, B) The tumors are morphologically similar but not identical (lower mitotic rate in B), as such breast ancillary testing will be performed on each tumor. C) The metastatic carcinoma is morphologically similar to the patient's primary breast carcinoma. Repeat testing can be performed on the current case upon clinical request. A, B, C) These are image-guided breast biopsies. The pathologic findings should be correlated with radiologic and clinical findings prior to treatment decisions. Case seen in consultation with Dr. Vaughan 11:07 AM CDT [facility] Clinical Information SITE A Indication: Left breast mass Lesion description: Oval lobulated, indistinct solid and hypoechoic mass Dimensions: 2.3 x 1.5 x 2.7 cm Location: Left breast, 1:00, 10 cm from nipple SITE B Indication: Left breast mass Lesion description: Oval indistinct, solid and hypoechoic and hyperechoic mass Dimensions: 1.5 x 1.0 x 1.0 cm Location: 2:00, 11 CFN Distance between A and B: 2.6 cm SITE C Indication: Left axillary lymph node Lesion description: Oval circumscribed and hypoechoic Dimensions: 1.8 cm 11:07 AM T [facility] Gross Description A) Label: Patient's name and left breast 1:00 10 cm Description: 3 fibrofatty core biopsies Size: 1.1-1.6 cm in length by 0.2 cm in diameter Ink color: Black The specimen is submitted in toto in one cassette. Cold ischemic time: Less than 60 minutes, meets current ASCO/CAP guidelines. The specimen was fixed in formalin for a minimum of 6 hours and not longer than 72 hours. B) Label: Patient's name and left breast 2:00 11 cm Description: 3 fibrofatty core biopsies Size: 0.4-0.7 cm in length by 0.2 cm in diameter Ink color: Blue The specimen is submitted in toto in one cassette. Cold ischemic time: Less than 60 minutes, meets current ASCO/CAP guidelines. The specimen was fixed in formalin for a minimum of 6 hours and not longer than 72 hours. C) Label: Patient's name and left axillary lymph node Description: 5 fibrofatty core biopsies Size: 0.4-0.8 cm in length by 0.1 cm in diameter Ink color: Green The specimen is submitted in toto in one cassette. Cold ischemic time: Less than 60 minutes, meets current ASCO/CAP guidelines. The specimen was fixed in formalin for a minimum of 6 hours and not longer than 72 hours. ADW 07/21/2024 11:07 AM T [facility] Microscopic Description The final diagnosis is based on microscopic examination of appropriate sections of all specimens. A) The presence of black ink is confirmed on tissue sections. B) The presence of blue ink is confirmed on tissue sections. C) The presence of green ink is confirmed on tissue sections. 11:07 AM T [facility] SYNOPTIC REPORTING Breast Biomarker Reporting Template BREAST BIOMARKER REPORTING TEMPLATE - A Protocol posted: 01/23/2023 Test(s) Performed: Estrogen Receptor (ER) Status: Positive (greater than 10% of cells demonstrate nuclear positivity) Percentage of Cells with Nuclear Positivity: 84 % Average Intensity of Staining: Moderate Test Type: Laboratory-developed test Primary Antibody: SP1 Test(s) Performed: Progesterone Receptor (PgR) Status: Positive Percentage of Cells with Nuclear Positivity: 16 % Average Intensity of Staining: Moderate Test Type: Laboratory-developed test Primary Antibody: 16 Test(s) Performed: HER2 by Immunohistochemistry: Negative (Score 0) Test Type: Laboratory-developed test Primary Antibody: 4B5 Test(s) Performed: Ki-67 Ki-67 Percentage of Positive Nuclei: 36 % Primary Antibody: MIB1 Cold Ischemia and Fixation Times: Meet requirements specified in latest version of the ASCO / CAP Guidelines Testing Performed on Block Number(s): A1 METHODS Fixative: Formalin Image Analysis: Performed Method: Aperio morphometric analysis Biomarkers Scored by Image Analysis: ER Biomarkers Scored by Image Analysis: PgR Biomarkers Scored by Image Analysis: Ki-67 Comment(s): HER2 immunohistochemistry (score) was evaluated by manual morphometry. 3,777 NUCLEI ANALYZED FOR KI67. Breast Biomarker Reporting Template BREAST BIOMARKER REPORTING TEMPLATE - A Protocol posted: 01/23/2023 Test(s) Performed: Estrogen Receptor (ER) Status: Positive (greater than 10% of cells demonstrate nuclear positivity) Percentage of Cells with Nuclear Positivity: 65 % Average Intensity of Staining: Moderate Test Type: Laboratory-developed test Primary Antibody: SP1 Test(s) Performed: Progesterone Receptor (PgR) Status: Positive Percentage of Cells with Nuclear Positivity: 2 % Average Intensity of Staining: Moderate Test Type: Laboratory-developed test Primary Antibody: 16 Test(s) Performed: HER2 by Immunohistochemistry: Negative (Score 0) Test Type: Laboratory-developed test Primary Antibody: 4B5 Test(s) Performed: Ki-67 Ki-67 Percentage of Positive Nuclei: 29 % Primary Antibody: MIB1 Cold Ischemia and Fixation Times: Meet requirements specified in latest version of the ASCO / CAP Guidelines Testing Performed on Block Number(s): B1 METHODS Fixative: Formalin Image Analysis: Performed Method: Aperio morphometric analysis Biomarkers Scored by Image Analysis: ER Biomarkers Scored by Image Analysis: PgR Biomarkers Scored by Image Analysis: Ki-67 Comment(s): HER2 immunohistochemistry (score) was evaluated by manual morphometry. 2,506 NUCLEI ANALYZED FOR KI67. 5 11:07 AM CDT [facility] Additional Information Interpreted at [facility] - [address] [place] [address] [address] [address], [place] [address] Immunohistochemistry controls were reviewed and approved as appropriate by the pathologist during this examination. Patients with breast cancers that are HER2 IHC 3+ or IHC 2+/AMAURY amplified may be eligible for several therapies that disrupt HER2 signaling pathways. Invasive breast cancers that test 'HER2-negative' (IHC 0, 1+ or 2+/AMAURY not-amplified) are more specifically considered 'HER2-negative for protein overexpression/gene amplification' since non-overexpressed levels of the HER2 protein may be present in these cases. Patients with breast cancers that are HER2 IHC 0 - UltraLow, HER2 IHC 1+ or IHC 2+/AMAURY not amplified may be eligible for a treatment that targets non-amplified/non-over expressed levels of HER2 expression for cytotoxic drug delivery (IHC 0 - Null results do not result in eligibility currently). 11:07 AM CDT [facility] Other (Left Breast Core Ultrasound Biopsy) 07/20/2024 11:40 AM CDT 07/21/2024 8:09 AM CDT Specimen (specimen) (Left Breast Core Ultrasound Biopsy) 07/20/2024 11:45 AM CDT 07/21/2024 10:39 AM CDT Specimen (specimen) (Left Axillary Lymph Node) 07/20/2024 11:50 AM CDT 07/21/2024 10:39 AM CDT us Ariadne Smyth NP PATHOLOGY/CYTOLOGY Edited Result - Final [facility] [address] [place] [address], [place] * SCAN-MAMMOGRAPHY REPORT (07/10/2024 12:00 AM CDT) Anatomical Region Laterality Modality Other us Scanner OTHER Final Result * DIRECTOR LONG TERM CARE THIN PREP PAP SCREEN IMAGED (07/27/2014 12:37 PM CDT) DIRECTOR LONG TERM CARE CYTOLOGY See Anatomic Pathology case 08/01/2014 2:00 PM CDT [facility] Specimen (specimen) (Cervical/Vagina l) Non-Blood / Unknown 07/27/2014 12:37 PM CDT 07/27/2014 1:21 PM CDT Danae BLANTON PATHOLOGY/CYTOLOGY Yajaira bird Result [facility] [address] [place] [address], [place] from Last 3 Months or Most Recently Relevant to Health Maintenance Insurance [place] Care Teams Mental Health Aide Relationship Specialty Start Date End Date Danae Hunter PA [address] [place] [address] PCP - General Family Practice 04/08/12
--- NOTE | 2024-08-03 09:15 | CRLHL7_ITS ---
For Patients: As a result of the Century Cures Act, medical imaging exams and procedure reports are released immediately into your electronic medical record. You may view this report before your referring provider. If you have questions, please contact your health care provider. ULTRASOUND-GUIDED LEFT BREAST BIOPSY AND POST-BIOPSY DIGITAL MAMMOGRAM FOR BIOPSY MARKER PLACEMENT CLINICAL HISTORY: Indeterminate mass. COMPARISON STUDIES: Breast MRI 07/27/2024. TECHNIQUE: Real-time ultrasound with image documentation was used for targeting the breast lesion. Core biopsy specimens were obtained using an automated gun with a 16 gauge biopsy needle. Post-biopsy CC and ML digital mammograms were obtained to document position of the biopsy marker. CONSENT and TIME OUT: The procedure, risks, and alternatives were explained to the patient and a consent was signed. [place] Protocol was followed including pre-procedure verification that relevant information/documentation was available, reviewed and properly matched to the patient; consent accurate and complete; and equipment and supplies available. Time Out was conducted just prior to starting procedure to verify the four required elements: patient identity, correct side/site marked (if applicable), procedure, relevant images/results properly labeled and displayed (if applicable). PROCEDURE: The patient was positioned supine on the ultrasound table. The breast was prepped with ChloraPrep. 8 cc of 1 percent lidocaine used for local anesthesia. Core samples were obtained. A sterile metal biopsy clip was placed percutaneously to franchesca the lesion position within the breast. The specimens were placed in 10% formalin and sent to the pathology department. Pressure was held on the biopsy site until all bleeding subsided. The skin incision was closed with Steri-Strips. An ice pack was positioned over the biopsy site. Post-biopsy instructions were reviewed with the patient, and a written copy was given to her. LATERALITY: LEFT breast. LESION: Heterogeneous solid mass anterior depth measuring 10 x 12 x 14 mm at 1 o`clock, 2 cm from the nipple. SUSPICION FOR MALIGNANCY: High. NUMBER OF SAMPLES: 6. BIOPSY CLIP SHAPE: HydroMARK. PROXIMITY OF CLIP TO TARGET: Within the lesion. IMPRESSION: Ultrasound-guided breast biopsy. When the pathology report is available, an addendum to this report will be made. ACR not applicable Dictated by Jose Luis Johnson MD @ 08/03/2024 12:00:04 PM /sp SP/Dictated by: Jose Luis Johnson MD @ 08/03/2024 12:00:00 PM (Electronically Signed)
--- NOTE | 2024-08-03 09:15 | CRLHL7_ITS ---
For Patients: As a result of the Century Cures Act, medical imaging exams and procedure reports are released immediately into your electronic medical record. You may view this report before your referring provider. If you have questions, please contact your health care provider. CLINICAL HISTORY: : Right axillary adenopathy. COMPARISON: Breast MRI 07/27/2024 TECHNIQUE: Real-time ultrasound imaging of right axilla with imaging documentation. Scanning was performed by both the technologist and the radiologist. FINDINGS: Targeted right axillary ultrasound performed. There is a mildly prominent right axillary lymph node which measures 1.3 x 0.7 x 0.7 cm. Slight cortical thickening noted. IMPRESSION: Mildly suspicious right axillary lymph node. RECOMMENDATIONS: Ultrasound-guided core needle biopsy will performed subsequently. Results and recommendations were discussed with the patient at the time of the exam. A lay language report of this examination will be provided to the patient. BI-RADS Category 4. Suspicious. Dictated by Jose Luis Johnson MD @ 08/03/2024 11:20:08 AM (Electronically Signed)
--- NOTE | 2024-08-03 09:15 | CRLHL7_ITS ---
For Patients: As a result of the Cures Act, medical imaging exams and procedure reports are released immediately into your electronic medical record. You may view this report before your referring provider. If you have questions, please contact your health care provider. LEFT BREAST ULTRASOUND CLINICAL HISTORY: LEFT breast mass/asymmetry. COMPARISON: MRI 07/27/2024. TECHNIQUE: Real-time ultrasound imaging of the LEFT breast with imaging documentation. Scanning was performed by both the technologist and the radiologist. FINDINGS: Targeted LEFT breast ultrasound performed. At 1 o`clock, 2 cm from the nipple, there is a masslike area with heterogeneous echotexture located at anterior depth and measuring 10 x 12 x 14 mm in total dimension. IMPRESSION: Suspicious mass LEFT breast 1 o`clock, 2 cm from the nipple, measuring 10 x 12 x 14 mm. RECOMMENDATIONS: Ultrasound-guided core needle biopsy. Results and recommendations were discussed with the patient at the time of the exam. A lay language report of this examination will be provided to the patient. BI-RADS Category 4: Suspicious Dictated by Jose Luis Johnson MD @ 08/03/2024 11:57:29 AM /sp SP/Dictated by: Jose Luis Johnson MD @ 08/03/2024 11:57:00 AM (Electronically Signed)
--- NOTE | 2024-08-03 10:00 | CRLHL7_ITS ---
For Patients: As a result of the Century Cures Act, medical imaging exams and procedure reports are released immediately into your electronic medical record. You may view this report before your referring provider. If you have questions, please contact your health care provider. PLEASE SEE LEFT BILATERAL BREAST ULTRASOUND-GUIDED BIOPSY OF SAME DAY. CRL:sp SP/Dictated by: Jose Luis Johnson MD @ 08/03/2024 11:02:00 AM (Electronically Signed)
--- NOTE | 2024-08-03 10:00 | CRLHL7_ITS ---
For Patients: As a result of the Cures Act, medical imaging exams and procedure reports are released immediately into your electronic medical record. You may view this report before your referring provider. If you have questions, please contact your health care provider. RIGHT BREAST ULTRASOUND CLINICAL HISTORY: RIGHT breast mass/asymmetry. COMPARISON: MRI 07/27/2024. TECHNIQUE: Real-time ultrasound imaging of RIGHT breast with imaging documentation. Scanning was performed by both the technologist and the radiologist. FINDINGS: At 11 o`clock, 5 cm from the nipple, there is a solid, circumscribed, hypoechoic mass measuring 1.9 x 1.1 x 2.0 cm. IMPRESSION: Indeterminate 1.9 x 1.1 x 2.0 cm solid hypoechoic mass posterior depth 11 o`clock, 5 cm from the nipple, RIGHT breast. RECOMMENDATIONS: Ultrasound-guided core needle biopsy. Results and recommendations were discussed with the patient at the time of the exam. A lay language report of this examination will be provided to the patient. BI-RADS Category 4: Suspicious Dictated by Jose Luis Johnson MD @ 08/03/2024 11:54:06 AM /sp SP/Dictated by: Jose Luis Johnson MD @ 08/03/2024 11:54:00 AM (Electronically Signed)
--- NOTE | 2024-08-03 10:00 | CRLHL7_ITS ---
For Patients: As a result of the Century Cures Act, medical imaging exams and procedure reports are released immediately into your electronic medical record. You may view this report before your referring provider. If you have questions, please contact your health care provider. ULTRASOUND-GUIDED RIGHT BREAST BIOPSY AND POST-BIOPSY DIGITAL MAMMOGRAM FOR BIOPSY MARKER PLACEMENT CLINICAL HISTORY: Indeterminate nodule. COMPARISON STUDIES: Ultrasound 08/03/2024, MRI 07/27/2024. TECHNIQUE: Real-time ultrasound with image documentation was used for targeting the breast lesion. Core biopsy specimens were obtained using an automated gun with a 16 gauge biopsy needle. Post-biopsy CC and ML digital mammograms were obtained to document position of the biopsy marker. CONSENT and TIME OUT: The procedure, risks, and alternatives were explained to the patient and a consent was signed. [place] Protocol was followed including pre-procedure verification that relevant information/documentation was available, reviewed and properly matched to the patient; consent accurate and complete; and equipment and supplies available. Time Out was conducted just prior to starting procedure to verify the four required elements: patient identity, correct side/site marked (if applicable), procedure, relevant images/results properly labeled and displayed (if applicable). PROCEDURE: The patient was positioned supine on the ultrasound table. The breast was prepped with ChloraPrep. 8 cc of 1 percent lidocaine used for local anesthesia. Core samples were obtained. A sterile metal biopsy clip was placed percutaneously to franchesca the lesion position within the breast. The specimens were placed in 10% formalin and sent to the pathology department. Pressure was held on the biopsy site until all bleeding subsided. The skin incision was closed with Steri-Strips. An ice pack was positioned over the biopsy site. Post-biopsy instructions were reviewed with the patient, and a written copy was given to her. LATERALITY: RIGHT breast. LESION: Solid hypoechoic mass measuring 1.9 x 1.1 x 2.0 cm at 11 o`clock, 5 cm from the nipple. SUSPICION FOR MALIGNANCY: High. NUMBER OF SAMPLES: 6. BIOPSY CLIP SHAPE: HydroMARK. PROXIMITY OF CLIP TO TARGET: Within/adjacent to the lesion. IMPRESSION: Ultrasound-guided breast biopsy. When the pathology report is available, an addendum to this report will be made. ACR not applicable Dictated by Jose Luis Johnson MD @ 08/03/2024 11:56:02 AM /sp SP/Dictated by: Jose Luis Johnson MD @ 08/03/2024 11:56:00 AM (Electronically Signed)
--- NOTE | 2024-08-03 10:00 | CRLHL7_ITS ---
For Patients: As a result of the Century Cures Act, medical imaging exams and procedure reports are released immediately into your electronic medical record. You may view this report before your referring provider. If you have questions, please contact your health care provider. ULTRASOUND-GUIDED RIGHT AXILLARY LYMPH NODE BIOPSY AND POST-BIOPSY DIGITAL MAMMOGRAM FOR BIOPSY MARKER PLACEMENT CLINICAL HISTORY: Mildly prominent right axillary lymph node in the setting of left breast cancer COMPARISON STUDIES: MRI 07/27/2024 TECHNIQUE: Real-time ultrasound with image documentation was used for targeting the right axillary lymph node lesion. Core biopsy specimens were obtained using an automated gun with an 18-gauge biopsy needle. Post-biopsy CC and ML digital mammograms were obtained to document position of the biopsy marker. CONSENT and TIME OUT: The procedure, risks, and alternatives were explained to the patient and a consent was signed. [place] Protocol was followed including pre-procedure verification that relevant information/documentation was available, reviewed and properly matched to the patient; consent accurate and complete; and equipment and supplies available. Time Out was conducted just prior to starting procedure to verify the four required elements: patient identity, correct side/site marked (if applicable), procedure, relevant images/results properly labeled and displayed (if applicable). PROCEDURE: The patient was positioned supine on the ultrasound table. The breast was prepped with ChloraPrep. 8 cc of 1 percent lidocaine used for local anesthesia. Core samples were obtained. A sterile metal biopsy clip was placed percutaneously to franchesca the lesion position within the breast. The specimens were placed in 10% formalin and sent to the pathology department. Pressure was held on the biopsy site until all bleeding subsided. The skin incision was closed with Steri-Strips. An ice pack was positioned over the biopsy site. Post-biopsy instructions were reviewed with the patient, and a written copy was given to her. LATERALITY: Right axilla LESION: Mildly prominent right axillary lymph node measures 13 x 7 x 7 millimeters SUSPICION FOR MALIGNANCY: Indeterminate NUMBER OF SAMPLES: 6 BIOPSY CLIP SHAPE: Oval PROXIMITY OF CLIP TO TARGET: Within/immediately adjacent to the lymph node IMPRESSION: Ultrasound-guided right axillary lymph node biopsy. When the pathology report is available, an addendum to this report will be made. ACR not applicable Dictated by Jose Luis Johnson MD @ 08/03/2024 11:39:11 AM (Electronically Signed)
--- OUTSIDE RECORDS SUMMARY | 2024-08-04 01:26 | XMS_ITS | Clinical Summary ---
Author Organization [facility] Address [address] [place] [address] Care Team Providers Care Scientific Software Engineer Name Role Phone No Primary/Referring, Phy Primary Care Provider Unavailable Source Comments You are receiving this document as you are listed as the primary care provider,follow-up provider, or the patient has been referred to you for consultation.This is in compliance with the Medicare and[facility] EHR Incentive Program,which states Providers who transition [...] 37.3 C (99.2 F) 01/18/2016 11:50 AM STARCHMAKER Respiratory Rate 16 01/18/2016 11:5 0 AM STARCHMAKER Oxygen Saturation 100% 01/18/2016 11: 50 AM STARCHMAKER Inhaled Oxygen Concentration - - Weight 76.1 kg (167 lb 11.2 oz) 016 11:00 AM STARCHMAKER Height 172.1 cm (5' 7.75) 04/20/2015 1 1:00 AM STARCHMAKER Body Mass Index 25.69 04/20/2015 11:00 AM STARCHMAKER Plan of Treatment Health Maintenance Due Date [...] AG/AB 4TH GEN Routine 04/13/2016 8:20 AM STARCHMAKER Screening for HIV (human immunodeficiency virus) PAP TEST, ROUTINE Routine 04/20/2015 10: 52 AM STARCHMAKER Screening for cervical cancer from Last 3 Months or Most Recently Relevant to Health Maintenance Results * HIV 1/2 Ag/Ab 4th Generation (04/13/2016 8:20 AM STARCHMAKER) HIV 1/2 AG/AB 4thGEN Negative (Non Reactive) NEGNR [facility] Comment:HIV-1 p24 Ag and HIV -1/HIV-2 Ab not detected. 04/13/2016 8:20 AM STARCHMAKER 04/13/2016 7:07 PM STARCHMAKER Narrative [facility] - 04/13/2016 8:25 PM STARCHMAKER Performed at [facility], [address] [place] [address] us Korin Delgado TEACHER OF THE HEARING IMPAIRED, SHOT HOLE DRILLER LAB_1 Final R esult [facility] [phone] * PAP TEST, ROUTINE (04/20/2015 10:52 AM STARCHMAKER) Cytology, Pap (NOTE) Tank Farm Attendant Cytology Report Patient Name: MARY LOCKHART Taken: [...] recorded Microscopic Description Microscopic examination is performed. [facility] Department of Pathology [address] [place] [id number] [facility] 04/20/2015 10:5 2 AM STARCHMAKER 04/21/2015 10:28 AM STARCHMAKER Yanni Rodriguez PA-C LAB_1 Final R esult [facility] [phone] from Last 3 Months or Most Recently Relevant to Health Maintenance Insurance [employer] Care Teams Scientific Software Engineer Relationship Specialty Start Date End Date No Primary/Referring, Phy PCP - General 11/22/14
--- OUTSIDE RECORDS SUMMARY | 2024-08-04 01:26 | XMS_ITS | Clinical Summary ---
Author Organization [facility] Address [address] [place] [address] Care Team Providers Care Building Inspector Name Role Phone SheltonSandi flaherty Ramiro EVANS Primary Care Provider [phone] Medications multivitamin (MVI) tablet Take 1 tablet [...] Care Team Description 08/02/2024 Travel 07/31/2024 Telephone [facility] [place] [address] [place] [address] Claudine Thrasher Cancer Genetics 07/30/2024 Orders Only [facility] Scanner 1 scan: (1-Ord) INCOMING RECORDS-MRI, [facility], 07/30/2024 07/29/2024 Transcribe Orders [facility] [place] [address] [place] [address] Veena Mccarty MD 07/29/2024 Transcribe Orders [facility] [place] [phone] Veena Mccarty MD 07/21/2024 Lab Requisition [facility] [phone] Ariadne Smyth, ASIF 07/21/2024 Lab Requisition [facility] [phone] Ariadne Smyth, ASIF 07/21/2024 Lab Requisition [facility] [phone] Ariadne Smyth, ASIF 07/10/2024 Orders Only [facility] Scanner 1 scan: (1-Ord) INCOMING RECORDS-MAMMOGRAMS, [facility], 07/10/2024 from Last 3 Months [...] AM CDT Legal Sex Female 2:01 PM TRUCK UNLOADER Gender Identity Female 08/02/2024 9:47 AM CDT Sexual Orientation Straight 08/02/2024 9: 47 AM CDT Obstetrics History Last Filed Vital Signs Vital Sign Reading Time Taken Comments Blood Pressure 104/62 07/27/2014 12:22 PM CDT Pulse 76 07/27/2014 12:22 PM CDT Temperature 37.1 C (98.8 F) 04/15/2012 12:21 PM TRUCK UNLOADER Respiratory Rate 20 04/15/2012 12:21 PM TRUCK UNLOADER Oxygen Saturation - - Inhaled Oxygen Concentration - - Weight 76.7 kg (169 lb) 07/27/2014 12:22 PM CDT Height 172.1 cm (5' 7.75) 07/27/2014 12:22 PM C DT Body Mass Index 25.89 07/27/2014 12:22 PM CDT Plan of Treatment Upcoming Encounters Date Type Department Care Team (Late st Contact Info) Description 08/04/2024 8:30 AM CDT Appointment [facility] Imaging [address] [place] [address] 08/07/2024 1:30 PM CDT Telemedicine [facility] [place] [address] [place] [address] Itzel Gutiérrez, MS, [facility] [address] [address] [facility] [address] [place] [address] Health Maintenance Due Date Last Done Comments [...] CDT SCAN-MAMMOGRAPHY REPORT 07/10/2024 12:00 AM CDT MANAGER PHARMACEUTICAL THIN PREP PAP SCREEN IMAGED Routine 07/27/2014 [...] NP LAB BILL ONLY Final Res ult [facility] [address] [place] [address], * PATH BREAST CORE BIOPSY (07/20/2024 11:40 AM CDT) Case Report Pathology Report Case: [id number] Authorizing Provider: Ariadne Smyth NP Collected: 07/20/2024 1140 Ordering Location: [facility] Received: 07/21/2024 0809 Pathologist: Lili Beckford MD Specimens: A) - Left Breast Core Ultrasound Biopsy, 1 o'clock, 10 cm from nipple B) - Left Breast Core Ultrasound Biopsy, 2 o'clock, 11 cm from nipple C) - Left Axillary Lymph Node 5 11:07 AM CDT [facility] Amendment 07/24/2024 - Amendmen t issued to incorporate ancillary studies. 11:07 AM CDT [facility] Final Diagnosis A) LEFT BREAST, 1:00, 10 CM FROM NIPPLE, ULTRASOUND-GUIDED CORE BIOPSY: 1. Invasive ductal carcinoma a. [place] grade: III of III; [place] score: 9 of 9 b. Angio-lymphatic invasion: [...] CORE BIOPSY: 1. Invasive ductal carcinoma a. [place] grade: II of III; [place] score: 7 of 9 b. Angio-lymphatic invasion: [...] extension in this biopsy 11:07 AM CDT Andro[facility] Amendment electronically signed by Best Hinds [...] consultation with Dr. Vaughan 11:07 AM CDT [facility] Clinical Information SITE A Indication: Left [...] and hypoechoic Dimensions: 1.8 cm 11:07 AM [facility] Gross Description A) Label: Patient's [...] than 72 hours. ADW 07/21/2024 11:07 AM [facility] Microscopic Description The final diagnosis is based on microscopic examination of appropriate sections of all specimens. A) The presence of black ink is confirmed on tissue sections. B) The presence of blue ink is confirmed on tissue sections. C) The presence of green ink is confirmed on tissue sections. 11:07 AM [facility] SYNOPTIC REPORTING Breast Biomarker Reporting [...] ANALYZED FOR KI67. 5 11:07 AM CDT [facility] Additional Information [facility] at [facility] - [address], [place] [address] Immunohistochemistry controls were reviewed and approved as [...] result in eligibility currently). 11:07 AM CDT [facility] Other (Left Breast Core Ultrasound Biopsy) 07/20/2024 11:40 AM CDT 07/21/2024 8:09 AM CDT Specimen (specimen) (Left Breast Core Ultrasound Biopsy) 07/20/2024 11:45 AM CDT 07/21/2024 10:39 AM CDT Specimen (specimen) (Left Axillary Lymph Node) 07/20/2024 11:50 AM CDT 07/21/2024 10:39 AM CDT us Ariadne Smyth NP PATHOLOGY/CYTOLOGY Edited Result - Final [facility] [address] [place] [address], [place] * SCAN-MAMMOGRAPHY REPORT (07/10/2024 12:00 AM CDT) Anatomical Region Laterality Modality Other us Scanner OTHER Final Result * MANAGER PHARMACEUTICAL THIN PREP PAP SCREEN IMAGED (07/27/2014 12:37 PM CDT) MANAGER PHARMACEUTICAL CYTOLOGY See Anatomic Pathology case 08/01/2014 2:00 PM CDT [facility] Specimen (specimen) (Cervical/Vagina l) Non-Blood / Unknown 07/27/2014 12:37 PM CDT 07/27/2014 1:21 PM CDT Danae BLANTON PATHOLOGY/CYTOLOGY Yajaira bird Result [facility] [address] [place] [address], [place] from Last 3 Months or Most Recently Relevant to Health Maintenance Insurance [facility] Care Teams Building Inspector Relationship Specialty Start Date End Date WellingtonMay NATHAN Bird [address] [place] [address] PCP - General Physician [place]istle [place]unk 08/03/24
== END 2024-08-03 09:00 | disposition home or self-care (01) ==
PROVIDERS: Visit Provider Surgery
DX: R92.8 Other abnormal and inconclusive findings on diagnostic imaging of breast (principal)
CPT/HCPCS: 19083; 38505; 76642; 76882; 76942; 77065; A4648; A4649

== ENCOUNTER 2024-08-06 09:13 | Outpatient (RCR) | payer OTHER, SELFPAY | END 2025-02-02 23:59 | disposition home or self-care (01) | LOC: CCIC 09:13 | PROVIDERS: Visit Provider Internal Medicine Hematology & Oncology | DX: C50.912 Malignant neoplasm of unspecified site of left female breast (principal); Z17.0 Estrogen receptor positive status [ER+]; C79.51 Secondary malignant neoplasm of bone; C77.9 Secondary and unspecified malignant neoplasm of lymph node, unspecified; N94.89 Other specified conditions associated with female genital organs and menstrual cycle | CPT/HCPCS: 99202; 99205 ==

== ENCOUNTER 2024-08-13 14:34 | Outpatient (CLI) | payer OTHER, SELFPAY ==
--- NOTE | 2024-08-13 14:45 | CRLHL7_ITS ---
For Patients: As a result of the Century Cures Act, medical imaging exams and procedure reports are released immediately into your electronic medical record. You may view this report before your referring provider. If you have questions, please contact your health care provider. INDICATION: Breast cancer, increased activity in the right ovary on recent CT PET. COMPARISON: CT-PET 08/04/2024 TECHNIQUE: 2D whitmore-scale and color Doppler images were acquired of the pelvis using a transabdominal and transvaginal approach. Transvaginal imaging performed to better visualize the endometrial stripe and ovaries. FINDINGS: Sonographic images demonstrate a normal size and smooth outer contour of the uterus. Uterus measures 8.2 cm in length by 3.9 cm in AP diameter by 4.6 cm in transverse dimension. The myometrium has a normal uniform echotexture. The endometrial lining appears normal and measures 9 mm in composite thickness. The right ovary measures 5.1 x 2.4 x 3.3 cm in size and the left ovary measures 2.8 x 0.7 x 1.4 cm. The ovaries demonstrate normal arterial and venous blood flow on color Doppler analysis. There are no suspicious fluid collections within the cul-de-sac. Simple circumscribed anechoic right ovarian cyst measures 2.7 x 1.8 x 2.2 cm. Solid nonshadowing lesion right ovary with internal color flow measures 2.1 x 1.6 x 1.5 cm. IMPRESSION: Intermediate risk solid lesion right ovary measures 2.1 cm. Options include MRI or per supervisor asbestos textile-oncology protocol. Aquarium Specialist-oncology consultation recommended. Surgical excision could be considered. Dictated by Jose Luis Johnson MD @ 08/13/2024 4:41:24 PM (Electronically Signed)
== END 2024-08-13 14:35 | disposition home or self-care (01) ==
LOC: US 14:34
PROVIDERS: Visit Provider Internal Medicine Hematology & Oncology
DX: N94.89 Other specified conditions associated with female genital organs and menstrual cycle (principal); C50.912 Malignant neoplasm of unspecified site of left female breast
CPT/HCPCS: 76830; 76856